=== PATIENT | male | born 1930 | race Caucasian/White ===

== ENCOUNTER 2016-11-25 06:29 | Observation (INO) ==
[2016-11-25] MEDS ORDERED: 0.9 % Sodium Chloride 1,000 ML IVC ONE (06:52)
[2016-11-25 07:22] LABS: INR 1.1; Prothrombin Time 11.6 Seconds (9.4-12.1)
[2016-11-25 07:25] LABS: Activated Partial Thrombo Time 28.9 Seconds (26.0-36.0)
[2016-11-25 07:29] LABS: Basophils # 0.1 K/mcL (0.0-0.2); Basophils % 0.8 %; Eosinophils # 0.1 K/mcL (0.0-0.6); Eosinophils % 0.8 %; Hematocrit 40.6 % (37.5-50.1); Immature Granulocytes % 0.8 % (0-4); Lymphocytes # 1.3 K/mcL (0.6-4.6); Mean Corpuscular HGB Conc 34.5 g/dL (31.6-35.5); Mean Corpuscular Hemoglobin 32.6 pg (28.0-33.3); Mean Corpuscular Volume 94.4 fL (83.0-100.0); Mean Platelet Volume 9.3 fL (9.4-12.4); Monocytes # 0.6 K/mcL (0.0-1.3); Monocytes % 8.5 %; Neutrophils # 5.2 K/mcL (1.6-8.9); Platelet Count 227 K/mcL (140-400); Red Cell Distribution Width 12.4 % (11.5-14.5); Segmented Neutrophils % 71.1 %
--- NOTE | 2016-11-25 07:42 | Emergency Department Note ---
Disposition Clinical Impression: Orthostatic hypotension Disposition: Admitted As Inpatient Condition: Good Time of Disposition: 08:51 Dizziness HPI - General Chief Complaint: ED Dizziness Stated Complaint: Lightheaded, SOB Time Seen by Provider: 11/25/16 06:41 Source: patient, family, EMS Mode of arrival: EMS Limitations: no limitations Nursing Notes Reviewed: Yes Vital Signs Reviewed: Yes - History of Present Illness HPI Narrative: 86-year-old male presents to the ER with complaints of lightheadedness. Patient has had this for several months and has had frequent falls. The past week patient has had approximately 3 falls with injuries to her upper extremities. Patient denies any loss of consciousness. Patient reports he feels significantly lightheaded when he stands. Patient persists morning had an indigestion type feeling and nausea after getting up from bed. Patient denies any symptoms of indigestion or nausea at this time Pt Subjective Complaint: lightheadedness Onset (ago): month(s) Timing: constant Description: lightheadedness History of similar episodes: Yes History of trauma: No (has fallen multiple times with ecchymosis to arms) Severity: moderate Improves with: remaining still Worsens with: position (standing up) Associated symptoms: Reports: chest pain, nausea - Related Data Home Medications Medication Instructions Recorded Confirmed Aspirin [Lo-Dose Aspirin EC] 81 mg PO QDPC 10/17/15 11/25/16 Atorvastatin [Lipitor] 40 mg PO HS 10/17/15 11/25/16 Clopidogrel [Plavix] 75 mg PO DAILY 10/17/15 11/25/16 Folic Acid 1 mg PO DAILY 10/17/15 11/25/16 Metoprolol [Lopressor] 50 mg PO DAILY 10/17/15 11/25/16 Vitamin B Complex [B Complex] 1 each PO DAILY 10/17/15 11/25/16 Midodrine HCl 5 mg PO TID 11/25/16 11/25/16 Nitroglycerin [Nitrostat] 0.4 mg SL PRN PRN 11/25/16 11/25/16 Allergies Allergy/AdvReac Type Severity Reaction Status Date / Time No Known Allergies Allergy Verified 11/25/16 06:39 All systems ED: reviewed and negative except as stated. Review of Systems: As Per HPI Constitutional: Denies: fever, chills Eyes: Denies: vision change Cardiovascular: Reports: chest pain. Denies: palpitations, dyspnea on exertion Respiratory: Denies: dyspnea Gastrointestinal: Reports: nausea. Denies: abdominal pain, vomiting Neurological: Reports: other (light headed). Denies: headache, weakness, numbness, paresthesias Past Medical History - Past Medical History Attestation: Yes The following information was validated with the patient. Source: patient, nursing notes reviewed Medical history: Reports: atrial fibrillation, cancer, coronary artery disease, diabetes, hyperlipidemia, hypertension, myocardial infarction, renal disease, other Surgical history: Reports: angioplasty/stent Psychiatric history: Reports: no psych history - Social History Smoking Status: Never smoker Smokeless Tobacco Status: No Alcohol use: Reports: occasionally Drug use: Reports: none Physical Exam - General Limitations: no limitations General appearance: alert, in no apparent distress - Head Head exam: atraumatic, normocephalic - Eye Eye exam: Present: PERRL, EOMI. Absent: conjunctival injection - ENT ENT exam: mucous membranes dry - Neck Neck exam: Present: normal inspection, full ROM. Absent: lymphadenopathy, thyromegaly - Chest Chest inspection: Present: normal inspection, symmetric chest wall rise - Respiratory Respiratory exam: Present: normal lung sounds bilaterally - Cardiovascular Cardiovascular exam: Present: regular rate, irregular rhythm - Abdominal Exam Abdominal exam: Present: soft, Non-Tender, normal bowel sounds - Expanded Upper Extremity Exam Forearm/Wrist exam: Present: ecchymosis (b/l arms) - Neurological Exam Neurological exam: Present: alert, oriented X3, CN II-XII intact. Absent: motor sensory deficit - Psychiatric Psychiatric exam: Present: normal affect - Skin Skin exam: Present: warm, dry, intact, normal color Course Course Narrative: Patient has significant orthostatic hypertension. Systolic blood pressure dropped into the 70s and patient is very symptomatic when standing. Has frequent Dr. Hodges and he has agreed to admit patient for further observation and management. Patient will also be seen by Dr. Del Rio the glaze wiper. Patient and daughter they in agreement with admission. Vital Signs Temperature 97.0 F L 11/25/16 06:30 Pulse Rate 67 11/25/16 06:30 Respiratory Rate 20 11/25/16 06:30 Blood Pressure 114/91 11/25/16 06:30 O2 Sat by Pulse Oximetry 97 11/25/16 06:30 Temperature 97.0 F L 11/25/16 08:54 Pulse Rate 76 11/25/16 07:05 Respiratory Rate 16 11/25/16 08:54 Blood Pressure 133/78 11/25/16 08:54 O2 Sat by Pulse Oximetry 94 11/25/16 07:05 Oxygen Delivery Oxygen Delivery Room Air Dizziness - Differential Diagnosis Likely: orthostatic hypotension. Unlikely: vertebral basilar insufficiency, cerebellar infarct - Lab Data Lab results reviewed: Yes I reviewed the patient's lab results. Lab results narrative: Patient with mild hyperkalemia 4.7. Patient with mild renal insufficiency. Patient's BNP is elevated patient's cardiac labs are negative at this point. Results discussed with patient and daughter. Result diagrams: 11/25/16 07:07 11/25/16 07:07 Lab Results 11/25/16 11/25/16 11/25/16 Range/Units 07:07 07:07 07:07 WBC 7.3 (4.3-11.1) K/mcL RBC 4.30 (4.19-5.50) M/mcL Hgb 14.0 (12.9-16.9) g/dL Hct 40.6 (37.5-50.1) % MCV 94.4 (83.0-100.0) fL MCH 32.6 (28.0-33.3) pg MCHC 34.5 (31.6-35.5) g/dL RDW 12.4 (11.5-14.5) % Plt Count 227 (140-400) K/mcL MPV 9.3 L (9.4-12.4) fL Immature Gran % 0.8 (0-4) % Seg Neutrophils % 71.1 % Lymphocytes % 18.0 % Monocytes % 8.5 % Eosinophils % 0.8 % Basophils % 0.8 % Neutrophils # 5.2 (1.6-8.9) K/mcL Lymphocytes # 1.3 (0.6-4.6) K/mcL Monocytes # 0.6 (0.0-1.3) K/mcL Eosinophils # 0.1 (0.0-0.6) K/mcL Basophils # 0.1 (0.0-0.2) K/mcL PT 11.6 (9.4-12.1) Seconds INR 1.1 APTT 28.9 (26.0-36.0) Seconds Sodium 135 L (136-145) mEq/L Potassium 4.7 H (3.5-4.5) mEq/L Chloride 102 (98-109) mEq/L Carbon Dioxide 26 (19-29) mEq/L BUN 18 (8-26) mg/dL Creatinine 1.60 H (0.72-1.25) mg/dL Est GFR ( Amer) 50 L (> 60) Est GFR (Non-Af Amer) 41 L (> 60) BUN/Creatinine Ratio 11 (6-26) Glucose 105 H (70-99) mg/dL Calculated Osmolality 282 (280-300) Calcium 9.5 (8.6-10.8) mg/dL Total Bilirubin 1.0 (0.2-1.2) mg/dL AST 23 (5-34) Units/L ALT 20 (0-55) Units/L Alkaline Phosphatase 110 (38-126) Units/L Creatine Kinase 82 (30-200) Units/L Troponin I (0-0.03) ng/mL B-Natriuretic Peptide (0-100) pg/mL Serum Total Protein 5.8 L (6.0-8.3) g/dL Albumin 3.2 L (3.5-5.0) g/dL Globulin 2.6 (2.4-3.5) g/dL Albumin/Globulin Ratio 1.2 (1.1-2.2) Ethyl Alcohol < 10 (0-10) mg/dL 11/25/16 11/25/16 Range/Units 07:07 07:07 WBC (4.3-11.1) K/mcL RBC (4.19-5.50) M/mcL Hgb (12.9-16.9) g/dL Hct (37.5-50.1) % MCV (83.0-100.0) fL MCH (28.0-33.3) pg MCHC (31.6-35.5) g/dL RDW (11.5-14.5) % Plt Count (140-400) K/mcL MPV (9.4-12.4) fL Immature Gran % (0-4) % Seg Neutrophils % % Lymphocytes % % Monocytes % % Eosinophils % % Basophils % % Neutrophils # (1.6-8.9) K/mcL Lymphocytes # (0.6-4.6) K/mcL Monocytes # (0.0-1.3) K/mcL Eosinophils # (0.0-0.6) K/mcL Basophils # (0.0-0.2) K/mcL PT (9.4-12.1) Seconds INR APTT (26.0-36.0) Seconds Sodium (136-145) mEq/L Potassium (3.5-4.5) mEq/L Chloride (98-109) mEq/L Carbon Dioxide (19-29) mEq/L BUN (8-26) mg/dL Creatinine (0.72-1.25) mg/dL Est GFR ( Amer) (> 60) Est GFR (Non-Af Amer) (> 60) BUN/Creatinine Ratio (6-26) Glucose (70-99) mg/dL Calculated Osmolality (280-300) Calcium (8.6-10.8) mg/dL Total Bilirubin (0.2-1.2) mg/dL AST (5-34) Units/L ALT (0-55) Units/L Alkaline Phosphatase (38-126) Units/L Creatine Kinase (30-200) Units/L Troponin I 0.03 (0-0.03) ng/mL B-Natriuretic Peptide 747 H (0-100) pg/mL Serum Total Protein (6.0-8.3) g/dL Albumin (3.5-5.0) g/dL Globulin (2.4-3.5) g/dL Albumin/Globulin Ratio (1.1-2.2) Ethyl Alcohol (0-10) mg/dL - Radiology Data Radiology results reviewed: Yes I reviewed the patient's radiology results. Assessment CT of his head which is interpreted by the radiologist as negative for acute abnormalities. Patient does have age-related changes and old lacunar infarct. Results discussed with patient. Patient also had a portable chest x- ray which is interpreted by the radiologist as positive for emphysema changes but no acute abdomen is no evidence of CHF. - EKG Data EKG attestation: Yes I reviewed and interpreted this EKG. EKG shows normal: sinus rhythm Rhythm: NSR, PAC's [place]/QRS: normal When compared to previous EKG there are: no significant changes Interpretation: no acute changes
[2016-11-25 08:13] LABS: Alanine Aminotransferase 20 Units/L (0-55); Albumin 3.2 g/dL (3.5-5.0); Albumin/Globulin Ratio 1.2 (1.1-2.2); Alkaline Phosphatase 110 Units/L (38-126); Aspartate Amino Transferase 23 Units/L (5-34); BUN/Creatinine Ratio 11 (6-26); Blood Urea Nitrogen 18 mg/dL (8-26); Calcium 9.5 mg/dL (8.6-10.8); Carbon Dioxide 26 mEq/L (19-29); Chloride 102 mEq/L (98-109); Creatine Kinase 82 Units/L (30-200); Ethanol < 10 mg/dL (0-10); Globulin 2.6 g/dL (2.4-3.5); Glucose 105 mg/dL (70-99); Osmolality,Calculated 282 (280-300); Potassium 4.7 mEq/L (3.5-4.5); Sodium 135 mEq/L (136-145); Total Protein 5.8 g/dL (6.0-8.3); eGFR For African Americans 50 (> 60); eGFR For Non-African Americans 41 (> 60)
[2016-11-25] MEDS ORDERED: Nitroglycerin 0.4 MG TAB.SUBL SL PRN (08:32)
[2016-11-25] MEDS ORDERED: Naloxone 0.4 MG/ML INJ IVP PRN (08:36)
[2016-11-25] MEDS: Folic Acid 1 MG TABLET PO SCH (09:52)
[2016-11-25] MEDS: Aspirin Enteric Coated 81 MG Tablet PO SCH (09:52)
[2016-11-25] MEDS: Vitamin B Complex/Vit C/Vit E 1 EACH TABLET PO SCH (09:52)
[2016-11-25] MEDS: 0.9 % Sodium Chloride 1,000 ML IVC SCH ×3 (09:53→19:22)
--- NOTE | 2016-11-25 11:56 | Internal Med History&Physical ---
Date of Encounter: 11/25/16 Time of Encounter: 11:54 Assessment and Plan (1) Orthostatic hypotension Current visit: Yes Status: Acute Right now Karen workup change in the meds holding the Flomax increasing the Midrin and look into may be some Florinef. Consult with Dr. Del Rio and our try to make some effort to improve his orthostasis Internal Medicine - H&P: HPI Chief complaint: Patient was positive for orthostasis in the ER and has been falling a lot. History of present illness: Mr. Charles is a 86 year old male Currently going to be worked up to see if we can improve his orthostasis. Past Med Surg Social Fam HX - Past Medical History Medical history: atrial fibrillation, cancer, coronary artery disease, diabetes , hyperlipidemia, hypertension, myocardial infarction, renal disease Psychiatric history: no psych history - Past Surgical History Surgical History: angioplasty/stent - Social History Smoking Status: Never smoker Smokeless Tobacco Status: No Alcohol use: occasionally Drug use: none - Family History Father Hx Family Neurologic Disorders: Yes (CVA) Sister Hx Family Endocrine Disorder: Yes (DM) Hx Family Neurologic Disorders: Yes (CVA, Parkinsons) Internal Medicine - H&P: Meds Aspirin [Lo-Dose Aspirin EC] 81 mg PO QDPC 10/17/15 [History] Atorvastatin [Lipitor] 40 mg PO HS 10/17/15 [History] Clopidogrel [Plavix] 75 mg PO DAILY 10/17/15 [History] Folic Acid 1 mg PO DAILY 10/17/15 [History] Vitamin B Complex [B Complex] 1 each PO DAILY 10/17/15 [History] Cholecalciferol (Vitamin D3) [Vitamin D] 1,000 unit PO DAILY 11/25/16 [History] Metoprolol Succinate 50 mg PO DAILY 11/25/16 [History] Midodrine HCl 5 mg PO TID 11/25/16 [History] Nitroglycerin [Nitrostat] 0.4 mg SL PRN PRN 11/25/16 [History] Tamsulosin HCl [Flomax] 0.4 mg PO DAILY 11/25/16 [History] 3 Allergy/AdvReac Type Severity Reaction Status Date / Time No Known Allergies Allergy Verified 11/25/16 06:39 All Systems PM: A 10-system review of systems was performed and is negative for pertinent findings except as documented above in the HPI. - Constitutional Vitals: Temp Pulse Resp BP Pulse Ox 98.1 F 94 15 128/74 94 11/25/16 09:00 11/25/16 09:00 11/25/16 09:00 11/25/16 09:00 11/25/16 09:00 - Head Head exam: Present: normal inspection - Neck Neck exam general surgery: Present: supple, trachea midline. Absent: lymphadenopathy - Respiratory Respiratory exam: Present: CTAB. Absent: accessory muscle use, rales, rhonchi, wheezes - Cardiovascular Cardiovascular exam: Present: irregular rhythm, RRR, +S1, +S2. Absent: diastolic murmur, gallop, rubs, systolic murmur Additional comments: There is obvious ectopy at time - GI/Abdominal GI/Abdominal exam: Present: normal bowel sounds, soft, no peritoneal signs. Absent: distended, tenderness - Extremities Exam Extremities exam: Present: warm, radial pulses palpable and symmetrical. Absent : calf tenderness, cyanotic, pedal edema - Expanded Upper Extremities Exam Elbow exam: Present: abrasion Forearm wrist exam: Present: abrasion Internal Med - H&P Results - Labs CBC & Chem 7: 11/25/16 07:07 11/25/16 07:07 Labs: Little bit increase of the creatinine with BUN looks good.
[2016-11-25] MEDS: Metoprolol XL (24 HR) Succ 50 MG TAB.ER.24H PO SCH (12:44)
[2016-11-25] MEDS ORDERED: *HR* Digoxin 0.5 MG/2 ML AMPUL IVP ONE (14:22)
--- NOTE | 2016-11-25 18:12 | Electrocardiograph Report ---
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
[2016-11-25] MEDS: Acetaminophen 325 MG TABLET PO PRN (22:05)
[2016-11-26 03:14] LABS: Basophils # 0.1 K/mcL (0.0-0.2); Basophils % 0.8 %; Eosinophils # 0.1 K/mcL (0.0-0.6); Eosinophils % 1.8 %; Hematocrit 36.5 % (37.5-50.1); Hemoglobin 12.7 g/dL (12.9-16.9); Immature Granulocytes % 0.2 % (0-4); Lymphocytes # 1.7 K/mcL (0.6-4.6); Lymphocytes % 25.3 %; Mean Corpuscular HGB Conc 34.8 g/dL (31.6-35.5); Mean Corpuscular Hemoglobin 32.8 pg (28.0-33.3); Mean Corpuscular Volume 94.3 fL (83.0-100.0); Mean Platelet Volume 9.3 fL (9.4-12.4); Monocytes # 0.7 K/mcL (0.0-1.3); Monocytes % 10.1 %; Neutrophils # 4.1 K/mcL (1.6-8.9); Platelet Count 190 K/mcL (140-400); Red Blood Count 3.87 M/mcL (4.19-5.50); Red Cell Distribution Width 12.4 % (11.5-14.5); Segmented Neutrophils % 61.8 %
[2016-11-26 03:24] LABS: BUN/Creatinine Ratio 13 (6-26); Blood Urea Nitrogen 17 mg/dL (8-26); Calcium 8.7 mg/dL (8.6-10.8); Carbon Dioxide 24 mEq/L (19-29); Chloride 108 mEq/L (98-109); Glucose 92 mg/dL (70-99); Osmolality,Calculated 285 (280-300); Potassium 4.5 mEq/L (3.5-4.5); Sodium 137 mEq/L (136-145); eGFR For African Americans > 60 (> 60); eGFR For Non-African Americans 52 (> 60)
[2016-11-26] MEDS: 0.9 % Sodium Chloride 1,000 ML IVC SCH ×2 (07:51→21:39)
[2016-11-26] MEDS: Folic Acid 1 MG TABLET PO SCH (08:57)
[2016-11-26] MEDS: Metoprolol XL (24 HR) Succ 50 MG TAB.ER.24H PO SCH (08:57)
[2016-11-26] MEDS: Vitamin B Complex/Vit C/Vit E 1 EACH TABLET PO SCH (08:57)
[2016-11-26] MEDS: Aspirin Enteric Coated 81 MG Tablet PO SCH (08:57)
[2016-11-26] MEDS ORDERED: Metoprolol XL (24 HR) Succ 50 MG TAB.ER.24H PO SCH (09:00)
--- NOTE | 2016-11-26 12:48 | Electrocardiograph Report ---
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
--- NOTE | 2016-11-26 13:25 | Internal Med Progress Note ---
Date of Encounter: 11/26/16 Time of Encounter: 13:23 - Assessment and plan (1) Orthostatic hypotension Current Visit: Yes Status: Acute Assessment and plan: Right now we have controlled the orthostatic hypotension. PT is going to see him and I really want to see how he does with ambulation. - Time Spent With Patient less than 15 minutes - Subjective Interval history: Patient's much better today. Blood pressure is sustained when standing and he does not have the orthostatic fall. He is eating has no complaints and his troponin is down. - Constitutional Vitals: Temp Pulse Resp BP Pulse Ox 97.8 F 59 16 147/69 94 11/26/16 07:08 11/26/16 07:08 11/26/16 09:40 11/26/16 11:55 11/26/16 07:08 - Head Head exam: Present: atraumatic, normal inspection, normocephalic - Neck Neck exam general surgery: Present: supple, trachea midline. Absent: lymphadenopathy - Respiratory Respiratory exam: Present: CTAB. Absent: accessory muscle use, rales, rhonchi, wheezes - Cardiovascular Cardiovascular exam: Present: RRR, +S1, +S2. Absent: diastolic murmur, gallop, rubs, systolic murmur - GI/Abdominal GI/Abdominal exam: Present: normal bowel sounds, soft, no peritoneal signs. Absent: distended, tenderness Internal Medicine: Result - Labs CBC & Chem 7: 11/26/16 03:05 11/26/16 03:05 Labs: Short CBC 11/26/16 Range/Units 03:05 WBC 6.6 (4.3-11.1) K/mcL Hgb 12.7 L (12.9-16.9) g/dL Hct 36.5 L (37.5-50.1) % Plt Count 190 (140-400) K/mcL Neutrophils # 4.1 (1.6-8.9) K/mcL BMP 11/26/16 03:05 Sodium 137 Potassium 4.5 Chloride 108 Carbon Dioxide 24 BUN 17 Creatinine 1.31 H Glucose 92 Calcium 8.7 Cardiac Enzymes 11/25/16 11/25/16 11/26/16 Range/Units 12:58 19:10 03:05 Troponin I 0.03 0.04 H* 0.07 H* (0-0.03) ng/mL 11/26/16 Range/Units 11:05 Troponin I 0.05 H* (0-0.03) ng/mL Lab looks good - ABG Interpretation ABG results: PT/INR, D-dimer PT 11.6 Seconds (9.4-12.1) 11/25/16 07:07 - Impressions Impressions Echocardiogram 11/25/16 11:46 Impressions: Atrial fibrillation, HR 100-120's. LVEF 40-45%. LV systolic function appears globally reduced. Mild concentric left ventricular hypertrophy. Indeterminate diastolic function. RV size is not well visualized in the apical view. Function is normal. Mild aortic regurgitation. Mild-moderate mitral regurgitation. Mild tricuspid regurgitation. No pulmonary hypertension. Left Ventricular Wall Motion: Rest Echo Findings The apex, apical inferior, mid inferior, basal inferior, apical anterior, mid anterior, basal anterior, apical septal, mid inferior septal, basal inferior septal, apical lateral, mid anterior lateral, basal anterior lateral, mid anterior septal, mid inferior lateral, basal anterior septal and basal inferior lateral schmitt were hypokinetic. Findings: Study Quality * Technically challenging windows with suboptimal image quality. ECG Findings * Atrial fibrillation, HR 100-120's. Aorta * Normally sized aortic root. Aortic Valve * No aortic stenosis. * Mild aortic regurgitation. * Aortic valve not well visualized. Mitral Valve * Mild mitral annular calcification * No mitral stenosis. * Mild-moderate mitral regurgitation. * Mildly thickened mitral valve leaflets. Left Ventricle * Mild concentric left ventricular hypertrophy. * Indeterminate diastolic function. * LVEF 40-45%. Tricuspid Valve * Tricuspid valve not well visualized. * Mild tricuspid regurgitation. * Estimated RA pressure is 3 mmHg. * Estimated RVSP is 24 mmHg. * No pulmonary hypertension. Pulmonic Valve * Pulmonic valve is not well visualized. * No pulmonic stenosis. * No pulmonic regurgitation. Pulmonary Artery * Pulmonary artery not well visualized. Left Atrium * Normal left atrial size. Right Atrium * Normal right atrial size. Right Ventricle * RV size is not well visualized in the apical view. Function is normal. Pericardium * There is no pericardial effusion present. IVC * Normal IVC dimensions and inspiratory collapse. - VTE Documentation of Mechanical Device: Graduated compression elastic hosiery Consult Discharge Plan - Plan Referrals: Jatin Schultz, TRIMMER HAND [Primary Care Provider] -
--- NOTE | 2016-11-26 14:31 | Electrocardiograph Report ---
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
[2016-11-27] MEDS: Acetaminophen 325 MG TABLET PO PRN (01:45)
[2016-11-27] MEDS: Folic Acid 1 MG TABLET PO SCH (09:45)
[2016-11-27] MEDS: Aspirin Enteric Coated 81 MG Tablet PO SCH (09:45)
[2016-11-27] MEDS: Vitamin B Complex/Vit C/Vit E 1 EACH TABLET PO SCH (09:46)
[2016-11-27] MEDS: Metoprolol XL (24 HR) Succ 50 MG TAB.ER.24H PO SCH (09:46)
--- NOTE | 2016-11-27 15:24 | Internal Med Progress Note ---
Date of Encounter: 11/27/16 Time of Encounter: 15:21 - Assessment and plan (1) Orthostatic hypotension Current Visit: Yes Status: Acute Assessment and plan: Patient's blood pressures better. And I see previous notes. We discussed increasing the metoprolol to try to prevent the supraventricular and even ventricular dysrhythmias - Time Spent With Patient less than 15 minutes - Subjective Interval history: Patient's much better today. Blood pressure is sustained when standing and he does not have the orthostatic fall. He is eating has no complaints and his troponin is down. Saw Dr. Del Rio today and also consulted with Dr. Mendez. There may get appointment to see Dr. Mendez to consider just consider a pacemaker. Rate is in the 60s with an occasional increase in his rate and irregularity. He is not near syncopal upon standing he is not nears orthostatic however he is still shaky and his gait the staff is concerned as little unstable. No result yet on the cortisol test Holter is on the patient is some removed prior to discharge. - Constitutional Vitals: Temp Pulse Resp BP Pulse Ox 97.5 F L 73 20 150/85 94 11/27/16 05:00 11/27/16 13:00 11/27/16 13:00 11/27/16 13:00 11/27/16 13:00 - Head Head exam: Present: atraumatic, normocephalic - Neck Neck exam general surgery: Present: supple, trachea midline. Absent: lymphadenopathy - Respiratory Respiratory exam: Present: CTAB. Absent: accessory muscle use, rales, rhonchi, wheezes - Cardiovascular Cardiovascular exam: Present: RRR, +S1, +S2. Absent: diastolic murmur, gallop, rubs, systolic murmur Internal Medicine: Result - Labs CBC & Chem 7: 11/26/16 03:05 11/26/16 03:05 Labs: BUN is improvement creatinine is improved some - ABG Interpretation ABG results: PT/INR, D-dimer PT 11.6 Seconds (9.4-12.1) 11/25/16 07:07 - VTE Documentation of Mechanical Device: Graduated compression elastic hosiery Consult Discharge Plan - Plan Referrals: Jatin Schultz, DIRECTOR REGULATORY AGENCY [Primary Care Provider] -
[2016-11-27] MEDS: 0.9 % Sodium Chloride 1,000 ML IVC SCH (15:31)
[2016-11-27 17:28] VITALS: BP 145/80
== END 2016-11-27 16:44 | disposition other institution (70) ==
LOC: EMEROOGRE 06:29 → INPGRE 06:29
PROVIDERS: ADMIT Internal Medicine; ATTEND Internal Medicine

== ENCOUNTER 2016-11-27 16:57 | Inpatient (IN) ==
[2016-11-27] MEDS ORDERED: Acetaminophen 325 MG TABLET PO PRN (18:15)
[2016-11-27] MEDS ORDERED: Naloxone 0.4 MG/ML INJ IVP PRN (18:20)
[2016-11-27] MEDS ORDERED: Nitroglycerin 0.4 MG TAB.SUBL SL PRN (18:21)
[2016-11-27] MEDS: Acetaminophen 325 MG TABLET PO PRN (20:56)
[2016-11-28] MEDS: Aspirin Enteric Coated 81 MG Tablet PO SCH (08:19)
[2016-11-28] MEDS: Vitamin B Complex/Vit C/Vit E 1 EACH TABLET PO SCH (08:19)
[2016-11-28] MEDS: Folic Acid 1 MG TABLET PO SCH (08:19)
--- NOTE | 2016-11-28 14:12 | Internal Med Progress Note ---
Date of Encounter: 11/28/16 Time of Encounter: 14:10 - Assessment and plan (1) Orthostatic hypotension Current Visit: No Status: Acute Assessment and plan: Patient does have a regular rhythm and when he was admitted he had severe orthostatic symptoms. Fainting and near syncope when standing. This has been corrected. Pressures are stable no near syncope. - Time Spent With Patient less than 15 minutes - Subjective Interval history: Mihaela Clauser showing improvement using Will Walker with staff still feels his ambulation is standby minimal. - Constitutional Vitals: Temp Pulse Resp BP Pulse Ox 97.7 F 75 16 133/69 96 11/28/16 07:30 11/28/16 07:30 11/28/16 07:30 11/28/16 07:30 11/28/16 07:30 - Head Head exam: Present: atraumatic, normal inspection, normocephalic - Neck Neck exam general surgery: Present: supple, trachea midline. Absent: lymphadenopathy - Respiratory Respiratory exam: Present: CTAB. Absent: accessory muscle use, rales, rhonchi, wheezes - Cardiovascular Cardiovascular exam: Present: irregular rhythm, RRR, +S1, +S2. Absent: diastolic murmur, gallop, rubs, systolic murmur Internal Medicine: Result - Labs Labs: Lab looks good - VTE Documentation of Mechanical Device: Graduated compression elastic hosiery Consult Discharge Plan - Plan Referrals: Jatin Schultz, APPAREL MANUFACTURE INSTRUCTOR [Primary Care Provider] -
[2016-11-28] MEDS: Acetaminophen 325 MG TABLET PO PRN (20:33)
[2016-11-29] MEDS: Acetaminophen 325 MG TABLET PO PRN (06:53)
[2016-11-29] MEDS: Folic Acid 1 MG TABLET PO SCH (08:20)
[2016-11-29] MEDS: Vitamin B Complex/Vit C/Vit E 1 EACH TABLET PO SCH (08:20)
[2016-11-29] MEDS: Aspirin Enteric Coated 81 MG Tablet PO SCH (08:20)
--- NOTE | 2016-11-29 13:04 | Internal Med Progress Note ---
Date of Encounter: 11/29/16 Time of Encounter: 13:02 - Assessment and plan (1) Orthostatic hypotension Current Visit: Yes Status: Acute Assessment and plan: Patient's ambulating better but still's a bit wobbly with a wheeled walker - Time Spent With Patient less than 15 minutes - Subjective Interval history: Breast Clauser has no complaints at this time. Is moving slightly with his ambulation. Heart rate is controlled but still irregularly irregular. - Constitutional Vitals: Temp Pulse Resp BP Pulse Ox 97.4 F L 66 16 142/58 94 11/29/16 07:00 11/29/16 03:30 11/29/16 07:00 11/29/16 12:25 11/29/16 07:00 - Head Head exam: Present: atraumatic, normal inspection, normocephalic - Neck Neck exam general surgery: Present: supple, trachea midline. Absent: lymphadenopathy - Respiratory Respiratory exam: Present: CTAB. Absent: accessory muscle use, rales, rhonchi, wheezes - Cardiovascular Cardiovascular exam: Present: RRR, +S1, +S2. Absent: diastolic murmur, gallop, rubs, systolic murmur Internal Medicine: Result - Labs Labs: Will repeat labs in the a.m. - VTE Documentation of Mechanical Device: Graduated compression elastic hosiery Consult Discharge Plan - Plan Referrals: Jatin Schultz, [employer]INIAN [employer]K [employer] INSTRUCTOR [Primary Care Provider] -
[2016-11-29] MEDS: Mag Hydrox/Al Hydrox/Simeth 30 ML UDC PO PRN (20:01)
[2016-11-30] MEDS: Mag Hydrox/Al Hydrox/Simeth 30 ML UDC PO PRN (05:46)
[2016-11-30 06:15] LABS: BUN/Creatinine Ratio 13 (6-26); Blood Urea Nitrogen 15 mg/dL (8-26); Calcium 8.9 mg/dL (8.6-10.8); Carbon Dioxide 27 mEq/L (19-29); Chloride 104 mEq/L (98-109); Glucose 99 mg/dL (70-99); Osmolality,Calculated 283 (280-300); Potassium 3.9 mEq/L (3.5-4.5); Sodium 136 mEq/L (136-145); eGFR For African Americans > 60 (> 60); eGFR For Non-African Americans > 60 (> 60)
[2016-11-30] MEDS: Folic Acid 1 MG TABLET PO SCH (08:14)
[2016-11-30] MEDS: Aspirin Enteric Coated 81 MG Tablet PO SCH (08:14)
[2016-11-30] MEDS: Vitamin B Complex/Vit C/Vit E 1 EACH TABLET PO SCH (08:14)
[2016-11-30] MEDS ORDERED: Simethicone 80 MG TAB.CHEW PO PRN (09:06)
--- NOTE | 2016-11-30 09:13 | Internal Med Progress Note ---
Date of Encounter: 11/30/16 Time of Encounter: 09:10 - Assessment and plan (1) Orthostatic hypotension Current Visit: Yes Status: Acute Assessment and plan: Will continue to support. Patient improving but still not sable. (2) PSVT (paroxysmal supraventricular tachycardia) Current Visit: Yes Status: Acute (3) Paroxysmal supraventricular tachycardia seen on mft Current Visit: Yes Status: Acute Assessment and plan: Etiology is unknow. Evaluation in progress per cardiology and awaiting guidance. Apparently, he had been on amiodarone but this led to CHF so it was discontinued. Episodes are self limited and resolve spontaneously. Will follow clinically. - Subjective Interval history: Doing better ye feeling dizzy at times. He knows that his heart rate increased significantly this morning but he didn't feel it. While his dizziness has improved, he wishes he were better still. He denies chest pain or pressure, dyspnea, sweats, nausea, etc. He is urinating very frequently and has no dsuria or change in urinary appeaarance. He is aware that he should only ambulate with assistance. Denies other complaints and wants to get better. - Constitutional Vitals: Temp Pulse Resp BP Pulse Ox 97.9 F 68 16 145/79 95 11/30/16 06:55 11/30/16 06:55 11/30/16 06:55 11/30/16 06:55 11/30/16 06:55 General appearance: Present: cooperative, A&O X 3, no acute distress - Head Head exam: Present: atraumatic, normocephalic - Eye Eye exam: Present: PERRL, conjuntiva pink, sclera anicteric Pupils: Present: PERRL - ENT ENT exam: Present: mucous membranes moist Additional comments: Edentulous. - Neck Neck exam general surgery: Present: supple, trachea midline - Respiratory Respiratory exam: Present: CTAB. Absent: accessory muscle use, rales, rhonchi, wheezes - Cardiovascular Cardiovascular exam: Absent: diastolic murmur, rubs, systolic murmur Additional comments: Irregular with frequent extrasystoles. - GI/Abdominal GI/Abdominal exam: Present: normal bowel sounds, soft, no peritoneal signs. Absent: distended, tenderness Additional comments: Obese and therefore difficult to palpate deeply. - Extremities Exam Extremities exam: Present: warm. Absent: calf tenderness, cyanotic, pedal edema - Back Exam Back exam: Absent: CVA tenderness (L), CVA tenderness (R) Additional comments: No sacral edema. - Skin Skin exam: Absent: abrasion, diaphoretic, petechiae, urticaria Internal Medicine: Result - Labs CBC & Chem 7: 11/30/16 05:30 Labs: BMP 11/30/16 05:30 Sodium 136 Potassium 3.9 Chloride 104 Carbon Dioxide 27 BUN 15 Creatinine 1.14 Glucose 99 Calcium 8.9 - VTE Documentation of Mechanical Device: Graduated compression elastic hosiery Consult Discharge Plan - Plan Referrals: Jatin Schultz, WATER PUMPING STATION ENGINEER [Primary Care Provider] -
[2016-12-01] MEDS: Mag Hydrox/Al Hydrox/Simeth 30 ML UDC PO PRN ×2 (05:25→21:40)
[2016-12-01] MEDS: Aspirin Enteric Coated 81 MG Tablet PO SCH (08:10)
[2016-12-01] MEDS: Vitamin B Complex/Vit C/Vit E 1 EACH TABLET PO SCH (08:10)
[2016-12-01] MEDS: Folic Acid 1 MG TABLET PO SCH (08:10)
--- NOTE | 2016-12-01 14:59 | Internal Med Progress Note ---
Date of Encounter: 12/01/16 Time of Encounter: 14:00 - Assessment and plan (1) Orthostatic hypotension Current Visit: Yes Status: Acute Assessment and plan: Will continue as planned Patient improving but still not stable with transfers, etc. (2) PSVT (paroxysmal supraventricular tachycardia) Current Visit: Yes Status: Acute (3) Paroxysmal supraventricular tachycardia seen on monitor technician Current Visit: Yes Status: Acute Assessment and plan: As before, etiology is unknow. Evaluation in progress per cardiology and awaiting guidance. Apparently, he had been on amiodarone but this led to CHF so it was discontinued. Episodes are self limited and resolve spontaneously. Will follow clinically. - Subjective Interval history: Had significant nausea and dyspepsia over night and for most of the morning. Was relatively severe and he wanted something done about it. However, upon his eating lunch and going outside, his abdominal problems subsided and he feels fine, now. He has no other complaints and admits he's not as tired as yesterday. He denies chills, sweats, abdominal pain, diarrhea, etc. Breathing is fine and there are no comoplaints of palpitation or chest pressure or pain.. - Constitutional Vitals: Temp Pulse Resp BP Pulse Ox 98.1 F 57 16 178/64 95 12/01/16 11:37 12/01/16 11:37 12/01/16 11:37 12/01/16 11:37 12/01/16 11:37 General appearance: Present: cooperative, A&O X 3, no acute distress - Head Head exam: Present: atraumatic, normocephalic - Eye Eye exam: Present: PERRL, conjuntiva pink, sclera anicteric. Absent: conjunctival injection Pupils: Present: PERRL - Neck Neck exam general surgery: Present: supple, trachea midline - Respiratory Respiratory exam: Present: CTAB. Absent: accessory muscle use, rales, rhonchi, wheezes - Cardiovascular Cardiovascular exam: Present: RRR. Absent: diastolic murmur, gallop, rubs, systolic murmur - GI/Abdominal GI/Abdominal exam: Present: hypoactive bowel sounds, soft, no peritoneal signs. Absent: distended, tenderness - Extremities Exam Extremities exam: Present: calf tenderness, cyanotic, warm, radial pulses palpable and symmetrical. Absent: pedal edema Internal Medicine: Result - Labs CBC & Chem 7: 11/30/16 05:30 - VTE Documentation of Mechanical Device: Graduated compression elastic hosiery Consult Discharge Plan - Plan Referrals: Jatin Schultz, ANIMAL HUSBANDRY TECHNICIAN [Primary Care Provider] -
[2016-12-01] MEDS: Acetaminophen 325 MG TABLET PO PRN (21:40)
[2016-12-02 05:42] LABS: Basophils % 0.6 %; Eosinophils # 0.1 K/mcL (0.0-0.6); Eosinophils % 0.8 %; Hemoglobin 13.7 g/dL (12.9-16.9); Immature Granulocytes % 0.6 % (0-4); Lymphocytes # 1.3 K/mcL (0.6-4.6); Lymphocytes % 18.6 %; Mean Corpuscular HGB Conc 34.3 g/dL (31.6-35.5); Mean Corpuscular Hemoglobin 31.9 pg (28.0-33.3); Mean Corpuscular Volume 93.2 fL (83.0-100.0); Mean Platelet Volume 9.5 fL (9.4-12.4); Monocytes # 0.6 K/mcL (0.0-1.3); Monocytes % 8.3 %; Platelet Count 215 K/mcL (140-400); Red Blood Count 4.29 M/mcL (4.19-5.50); Red Cell Distribution Width 12.6 % (11.5-14.5); Segmented Neutrophils % 71.1 %
[2016-12-02 05:56] LABS: BUN/Creatinine Ratio 15 (6-26); Blood Urea Nitrogen 20 mg/dL (8-26); Calcium 9.2 mg/dL (8.6-10.8); Carbon Dioxide 25 mEq/L (19-29); Chloride 101 mEq/L (98-109); Glucose 151 mg/dL (70-99); Osmolality,Calculated 284 (280-300); Potassium 4.5 mEq/L (3.5-4.5); Sodium 134 mEq/L (136-145); eGFR For African Americans > 60 (> 60); eGFR For Non-African Americans 50 (> 60)
[2016-12-02] MEDS: Aspirin Enteric Coated 81 MG Tablet PO SCH (08:59)
[2016-12-02] MEDS: Vitamin B Complex/Vit C/Vit E 1 EACH TABLET PO SCH (08:59)
[2016-12-02] MEDS: Folic Acid 1 MG TABLET PO SCH (09:00)
--- NOTE | 2016-12-02 14:27 | Internal Med Progress Note ---
Date of Encounter: 12/02/16 Time of Encounter: 14:25 - Assessment and plan (1) Orthostatic hypotension Current Visit: Yes Status: Acute Assessment and plan: This is pretty much resolved at this point - Time Spent With Patient less than 15 minutes - Subjective Interval history: Patient is was feeling a little lightheaded with the weigher and mixer therapy but feels much better now. Really did not eat breakfast and, SLAP part of the morning. But now he feels much better he looks bright and is working with the therapist - Constitutional Vitals: Temp Pulse Resp BP Pulse Ox 97.7 F 63 16 130/81 95 12/02/16 11:02 12/02/16 11:02 12/02/16 11:02 12/02/16 11:02 12/02/16 11:02 General appearance: Present: cooperative, A&O X 3, no acute distress - Head Head exam: Present: atraumatic, normal inspection, normocephalic - Neck Neck exam general surgery: Present: supple, trachea midline. Absent: lymphadenopathy - Respiratory Respiratory exam: Present: CTAB. Absent: accessory muscle use, rales, rhonchi, wheezes - Cardiovascular Cardiovascular exam: Present: irregular rhythm, RRR, +S1, +S2. Absent: diastolic murmur, gallop, rubs, systolic murmur Internal Medicine: Result - Labs CBC & Chem 7: 12/02/16 05:20 12/02/16 05:20 Labs: Short CBC 12/02/16 Range/Units 05:20 WBC 7.1 (4.3-11.1) K/mcL Hgb 13.7 (12.9-16.9) g/dL Hct 40.0 (37.5-50.1) % Plt Count 215 (140-400) K/mcL Neutrophils # 5.0 (1.6-8.9) K/mcL BMP 12/02/16 05:20 Sodium 134 L Potassium 4.5 Chloride 101 Carbon Dioxide 25 BUN 20 Creatinine 1.37 H Glucose 151 H Calcium 9.2 Lab actually looks really good - VTE Documentation of Mechanical Device: Graduated compression elastic hosiery Consult Discharge Plan - Plan Instructions: Hypotension (DC) Referrals: Lalito Del Rio MD [Partnered Physician] - 01/08/17 9:30 am ([place] [facility] follow up appointment) Aramis Mendez MD [Partnered Physician] - 12/11/16 1:40 pm (cardiology in [facility], [address]) Manuel Montaño DO [Partnered Physician] - 01/17/17 2:30 pm ([facility] up with [facility] in [place]) Audi Douglas MD [Partnered Physician] - 03/19/17 8:15 am (follow up with urology in [place]) Jatin Schultz CNP [Primary Care Provider] - 12/12/16 1:40 pm (follow up appointment with family physician)
[2016-12-02] MEDS: Acetaminophen 325 MG TABLET PO PRN ×2 (17:22→23:44)
[2016-12-02] MEDS: Mag Hydrox/Al Hydrox/Simeth 30 ML UDC PO PRN (19:45)
[2016-12-03] MEDS: Mag Hydrox/Al Hydrox/Simeth 30 ML UDC PO PRN (09:11)
[2016-12-03] MEDS: Vitamin B Complex/Vit C/Vit E 1 EACH TABLET PO SCH (09:11)
[2016-12-03] MEDS: Acetaminophen 325 MG TABLET PO PRN (09:11)
[2016-12-03] MEDS: Folic Acid 1 MG TABLET PO SCH (09:11)
[2016-12-03] MEDS: Aspirin Enteric Coated 81 MG Tablet PO SCH (09:11)
[2016-12-03 10:48] VITALS: BP 139/67
--- NOTE | 2016-12-03 13:25 | Discharge Summary ---
Date of Encounter: 12/03/16 Time of Encounter: 13:23 - Discharge Diagnosis (1) Orthostatic hypotension Priority: Primary Status: Acute - Discharge Medications Home Medications: Aspirin [Lo-Dose Aspirin EC] 81 mg PO QDPC 10/17/15 [History] Atorvastatin [Lipitor] 40 mg PO HS 10/17/15 [History] Clopidogrel [Plavix] 75 mg PO DAILY 10/17/15 [History] Folic Acid 1 mg PO DAILY 10/17/15 [History] Vitamin B Complex [B Complex] 1 each PO DAILY 10/17/15 [History] Cholecalciferol (Vitamin D3) [Vitamin D] 1,000 unit PO DAILY 11/25/16 [History] Metoprolol Succinate 50 mg PO DAILY 11/25/16 [History] Midodrine HCl 5 mg PO TID 11/25/16 [History] Nitroglycerin [Nitrostat] 0.4 mg SL PRN PRN 11/25/16 [History] Tamsulosin HCl [Flomax] 0.4 mg PO DAILY 11/25/16 [History] Allergies/Adverse Reactions: 3 Allergy/AdvReac Type Severity Reaction Status Date / Time No Known Allergies Allergy Verified 11/25/16 06:39 Procedures/tests Complete & Pending: Procedures Performed prior 72 hours Category Date Time Status ECG 12 lead ECG [ECG] Routine Y 12/03/16 10:38 Completed Date of admission: 11/27/16 17:38 Primary care physician: Jatin Schultz CNP Consults: 11/27/16 17:53 Consult to Occupational Therapy [CONS] Routine Comment: orthostatic hypotension Reason for Consult: orthostatic hypotension Consult to Physical Therapy [CONS] Routine Comment: orthostatic hypotension Reason for Consult: orthostatic hypotension Consult to Recreational Therapy [CONS] Routine Comment: Consult to Burlapper [CONS] Routine Reason for SW Consult: orthostatic hypotension Discharging clinician: Kirk Hodges Anticipated date of discharge: 12/03/16 - Patient Status Disposition: Home Health Service Condition: Good Functional capacity at discharge: independent ambulation Overall status at discharge: patient is progressing back to baseline - Discharge Instructions Instructions: Hypotension (DC) Follow Up With: Lalito Del Rio MD [Partnered Physician] - 01/08/17 9:30 am ([place] [facility] follow up appointment) Aramis Mendez MD [Partnered Physician] - 12/11/16 1:40 pm (cardiology in [facility], [address]) Manuel Montaño DO [Partnered Physician] - 01/17/17 2:30 pm (follow up with [facility] in [place]) Audi Douglas MD [Partnered Physician] - 03/19/17 8:15 am (follow up with urology in [place]) Jatin Schultz CNP [Primary Care Provider] - 12/12/16 1:40 pm (follow up appointment with family physician) - Diet and Activity Activity: ambulate only with your walker Diet: advance to your usual diet Interval History: Patient was falling and even had near syncopal syncopal episodes. It appeared to be orthostatic hypotension. He was admitted to correct that I consulted with Dr. Del Rio in cardiology. He had started him on Midrin for his blood pressure and I increased the dose. His heart rate though was very irregular and tachycardic at times and we have corrected that. His blood pressure is a lot more stable. And we have had no syncopal episodes since his admission. He only complains right now right shoulder pain which will do an x-ray on and this appears to be secondary to warm the falls he had at home also going to continue with PT and OT at home Hospital course: Mr. Charles is a 86 year old male [place] better blood pressures better Midrin is been increased he is going to see Dr. Mendez about possibility of a pacemaker due to the fact that he had a lot of tachycardia and medication in order to correct this might also call some bradycardia. He will be evaluated. - Time Spent with Patient Total time spent providing and/or coordinating discharge services: Less than 30 minutes - Constitutional Vitals: Temp Pulse Resp BP Pulse Ox 97.6 F 57 16 139/67 96 12/03/16 06:58 12/03/16 10:47 12/03/16 06:58 12/03/16 10:47 12/03/16 10:47 General appearance: Present: cooperative, A&O X 3, no acute distress - Head Head exam: Present: atraumatic, normal inspection, normocephalic - Neck Neck exam general surgery: Present: supple, trachea midline. Absent: lymphadenopathy - Respiratory Respiratory exam: Present: CTAB. Absent: accessory muscle use, rales, rhonchi, wheezes - Cardiovascular Cardiovascular exam: Present: RRR, +S1, +S2. Absent: diastolic murmur, gallop, rubs, systolic murmur - GI/Abdominal GI/Abdominal exam: Present: normal bowel sounds, soft, no peritoneal signs. Absent: distended, tenderness - VTE Documentation of Mechanical Device: Graduated compression elastic hosiery
--- NOTE | 2016-12-03 13:29 | Physician Discharge Referral ---
Home Health/Hosp Referral Info Transfer to: Home Health Provider in Charge Post Discharge: PCP - Diagnosis (1) Orthostatic hypotension Priority: Primary Status: Acute - Respiratory Orders Smoking Cessation: Smoking cessation has been advised. For more information, call the [place] Tobacco Quit Line at 2-411-ULWW-NOW. - Diet/Nutrition Diet/Nutrition Orders: Regular - Activity Activity Orders: Walker - Services Needed Following services are medically necessary services: Nursing, Physical Therapy, Occupational Therapy - Transfer Medications Home Medications: Aspirin [Lo-Dose Aspirin EC] 81 mg PO QDPC 10/17/15 [History] Atorvastatin [Lipitor] 40 mg PO HS 10/17/15 [History] Clopidogrel [Plavix] 75 mg PO DAILY 10/17/15 [History] Folic Acid 1 mg PO DAILY 10/17/15 [History] Vitamin B Complex [B Complex] 1 each PO DAILY 10/17/15 [History] Cholecalciferol (Vitamin D3) [Vitamin D] 1,000 unit PO DAILY 11/25/16 [History] Metoprolol Succinate 50 mg PO DAILY 11/25/16 [History] Midodrine HCl 5 mg PO TID 11/25/16 [History] Nitroglycerin [Nitrostat] 0.4 mg SL PRN PRN 11/25/16 [History] Tamsulosin HCl [Flomax] 0.4 mg PO DAILY 11/25/16 [History] Allergies/Adverse Reactions: 3 Allergy/AdvReac Type Severity Reaction Status Date / Time No Known Allergies Allergy Verified 11/25/16 06:39 Certification: Further, I certify that my clinical findings support that this patient is homebound (i.e. absences from home require considerable and taxing effort and are for medical reasons or yazdanism services or infrequently or short duration when for other reasons) because: Homebound Reason: Patient requires assistance of a person or device to safely leave home Attestation: My signature below is to certify that this patient is under my care and that I, or nurse practitioner, or a physician's assistant prosecuting attorney working with me, has a face-to -face encounter with this patient.
--- NOTE | 2016-12-03 16:23 | Electrocardiograph Report ---
[address] [address] Test Date: 2016-12-03 Pat Name: Elan Charles Department: 2001 Room: 112 Gender: M Platform Loader: Tb : 1930 Requested By: Kirk Hodges Order Number: [id number] Reading MD: Aramis Mendez Measurements Intervals [place] Rate: 53 P: 243 VT: 176 QRS: -1 QRSD: 93 T: -12 QT: 439 QTc: 422 Interpretive Statements SINUS BRADYCARDIA WITH OCCASIONAL SUPRAVENTRICULAR PREMATURE COMPLEXES MODERATE ST DEPRESSION Electronically Signed On 12-03-2016 16:21:46 EDT by Aramis Mendez
== END 2016-12-03 15:15 | disposition home health service (06) | DRG 312 ==
LOC: INPGRE 17:38
PROVIDERS: ADMIT Internal Medicine; ATTEND Internal Medicine

== ENCOUNTER 2018-09-15 10:37 | Observation (INO) ==
[2018-09-15] MEDS ORDERED: Ondansetron 4 MG/2 ML VIAL IVP ONE (10:52)
[2018-09-15] MEDS ORDERED: Isovue-370 500 ML BOTTLE IVP ONE (10:53)
[2018-09-15] MEDS ORDERED: 0.9 % Sodium Chloride 250 ML IVC ONE (10:53)
--- NOTE | 2018-09-15 11:01 | Emergency Department Note ---
Disposition Clinical Impression: Syncope Qualifiers: Syncope type: unspecified Qualified Code(s): R55 - Syncope and collapse Disposition: Admitted As Inpatient Time of Disposition: 12:55 Syncope HPI - General Chief Complaint: ED Dizziness Stated Complaint: weakness, dizziness Time Seen by Provider: 09/15/18 10:39 Source: patient, family, EMS Mode of arrival: EMS Limitations: no limitations Nursing Notes Reviewed: Yes Vital Signs Reviewed: Yes - History of Present Illness HPI Narrative: Patient presents to the emergency department with the daughter providing much of the history. She states that he woke this morning with symptoms of lightheadedness, dizziness, weakness. The symptoms yesterday. Did not felt well for the last 24 hours. Patient reports he felt nauseated but did not vomit. Was belching. Called his daughter indicating that he was ill and she found him shaky, he felt hot, he was asking for the fan blanket at the same time, he seemed confused. He told her that he had had difficulty getting to the door to open it for her. He usually uses a walker but felt too weak to walk to the door. He crawled to the couch and thinks that he fainted briefly. He was incontinent of urine and did not know that he was incontinent of urine. He felt lightheaded. Daughter states that she tried to get him to, 8 AM but he refused. He began to feel worse and then finally agreed to transport. Patient reports right lower quadrant pain which radiated to his right upper abdomen. He has had constipation for 6 days and finally had a bowel movement yesterday which was dark but the color is always dark according to the daughter. He reports the right lower quadrant pain now to be more moderate in intensity, worse if he moves or changes position, dull in character, unusual for him different than any symptoms he has had in the past. Patient denies any shortness of breath or chest pain. But the daughter states that previous episode similar to this have been related to heart. He has a past medical history of atrial fibrillation, also other irregular beats for which she had a loop recorder implanted by Dr. Mendez. He has had 2 cardiac stents one of which done 2 years ago after symptoms similar to today's - Related Data Home Medications Medication Instructions Recorded Confirmed Atorvastatin [Lipitor] 40 mg PO HS 10/17/15 09/15/18 Clopidogrel [Plavix] 75 mg PO DAILY 10/17/15 09/15/18 Nitroglycerin [Nitrostat] 0.4 mg SL PRN PRN 11/25/16 09/15/18 Cholecalciferol (D-3) [Vitamin D] 5,000 unit PO DAILY 09/13/17 09/15/18 Aspirin [Lo-Dose Aspirin EC] 81 mg PO DAILY 10/29/17 09/15/18 Mirtazapine [Remeron] 15 mg PO HS 10/29/17 09/15/18 LORazepam [Ativan] 0.5 mg PO BID 09/15/18 09/15/18 Levothyroxine [Synthroid] 25 mcg PO 0609/15/18 09/15/18 Tolterodine Tartrate [Tolterodine 2 mg PO DAILY 09/15/18 09/15/18 Tartrate ER] Previous Rx's Medication Instructions Recorded Diltiazem CD (24hr) [Cardizem CD] 120 mg PO DAILY 30 Days #30 09/16/17 cap.er.24h Midodrine [ProAmatine] 7.5 mg PO 0800,1200,1700 30 Days 09/16/17 #90 tablet Allergies Allergy/AdvReac Type Severity Reaction Status Date / Time No Known Allergies Allergy Verified 09/15/18 11:05 All systems ED: reviewed and negative except as stated. Review of Systems: As Per HPI Past Medical History - Past Medical History Medical history: Reports: atrial fibrillation, coronary artery disease, diabetes, hyperlipidemia, hypertension, myocardial infarction, renal disease, SVT, other Surgical history: Reports: angioplasty/stent Psychiatric history: Reports: no psych history - Social History Smoking Status: Former smoker Smokeless Tobacco Status: No Alcohol use: Reports: occasionally Drug use: Reports: none Physical Exam Constitutional: Patient is oriented to person, place, and time. Skin color is pink. Appears well hydrated, body habitus elderly and frail.. Non toxic appearing but is slow to respond sometimes and seems to be searching for words. Slightly confused.. Head: Normocephalic and atraumatic. External ear exam normal Nose: Nose normal. Mouth/Throat: Uvula is midline, oropharynx is clear and moist and mucous membranes are normal. Eyes: Conjunctivae nl, extraocular motions and lids are normal. Pupils are equal, round, and reactive to light. Neck: Normal range of motion and phonation normal. Neck supple. Cardiovascular: Normal rate, irregular rhythm, normal heart sounds. No heart murmur Pulmonary/Chest: No Respiratory distress. Respiratory Effort normal and breath sounds clear. Abdominal: Soft. Normal appearance and bowel sounds are normal. Right lower quadrant tenderness, no masses right lower quadrant guarding, no rebound Genitals: Patient has involuted penis and no evidence of swelling of testicles or penis without lesions or erythema. No discoloration of the scrotum. Musculoskeletal: Good distal pulses. Soft compartments. Brisk cap refill. Extremities: Normal range of motion.Intact peripheral pulses. 1+ Edema. Extremity skin color nl, no calf tenderness or palpable cords. Neurological: GCS 15. Patient is alert and oriented without evidence of obvio us motor deficits but he does seem to be slightly confused. He is able to follow commands. He has no facial droop or focal neuro deficits visible. Speech is somewhat delayed sometimes he will think of the word but he is not frankly aphasic Skin: Skin is warm, dry and intact. color is normal, cap refill is quick Psychiatric: Patient has normal mood and flat affect. Patient speech is normal. Behavior and thought content normal - General Limitations: no limitations General appearance: alert, in no apparent distress Course - Reevaluation(s) Reevaluation #1: Patient reevaluated. No new complaints. No bowel movement yet and plan for cath for urine specimen. pt had syncope w/ urinary incontinence and abd pain, confusion. he will require hospital admission for eval, but this will need to wait until after CT results avail. sts requires nothing for his abd pain aat present. Time: 11:35 Reevaluation #2: I discussed the case with Dr. Alex converter skimmer for hospitalist. She understands that the CT of the abdomen is pending and if indeed the patient has a surgical emergency he will not be able to be admitted here however I do feel as though he requires hospitalization as he had a syncopal episode and will need to be fully evaluated for that including serial troponins. Care was turned over to Dr. Archer at change of shift Time: 12:20 Reevaluation #3: CT scan showed no acute process up at page out for Dr. Alex at 1328 2 advised that the patient could be admitted here to our facility for further management and treatment she continues rest comfortably he is an elderly male in no distress skin is without rash or lesions he is pale but intact pupils round nares are patent Rosoff supple trachea is midline chest clear to all station heart regular rate and rhythm abdomen is tender but no rebound or rigidity no pulsatile masses examination patient for range of motion mentation is intact Vital Signs Temperature 98.3 F 09/15/18 10:46 Pulse Rate 100 09/15/18 10:46 Respiratory Rate 16 09/15/18 10:46 Blood Pressure 128/86 09/15/18 10:46 O2 Sat by Pulse Oximetry 99 09/15/18 10:46 Temperature 98.3 F 09/15/18 10:46 Pulse Rate 81 09/15/18 12:18 Respiratory Rate 18 09/15/18 12:18 Blood Pressure 121/87 09/15/18 12:18 O2 Sat by Pulse Oximetry 95 09/15/18 12:18 Oxygen Delivery Oxygen Delivery Room Air Syncope - MDM Narrative Medical decision making narrative: Abdominal pain possible appendicitis - Differential Diagnosis Likely: vasovagal syncope, intracerebral hemorrhage, dehydration/metabolic disorder - Medical Records Medical records reviewed: Yes I reviewed the patient's medical records. - Lab Data Lab results reviewed: Yes I reviewed the patient's lab results. Result diagrams: 09/15/18 11:05 09/15/18 11:05 Lab Results 09/15/18 09/15/18 09/15/18 Range/Units 11:05 11:05 11:05 WBC 11.2 H (4.3-11.1) K/mcL RBC 4.66 (4.19-5.50) M/mcL Hgb 14.8 (12.9-16.9) g/dL Hct 44.3 (37.5-50.1) % MCV 95.1 (83.0-100.0) fL MCH 31.8 (28.0-33.3) pg MCHC 33.4 (31.6-35.5) g/dL RDW 13.3 (11.5-14.5) % Plt Count 260 (140-400) K/mcL MPV 9.2 L (9.4-12.4) fL Immature Gran % 0.5 (0-4) % Seg Neutrophils % 81.0 % Lymphocytes % 9.4 % Monocytes % 7.7 % Eosinophils % 0.7 % Basophils % 0.7 % Neutrophils # 9.1 H (1.6-8.9) K/mcL Lymphocytes # 1.1 (0.6-4.6) K/mcL Monocytes # 0.9 (0.0-1.3) K/mcL Eosinophils # 0.1 (0.0-0.6) K/mcL Basophils # 0.1 (0.0-0.2) K/mcL PT 12.4 H (9.4-12.1) Seconds INR 1.1 VBG pH (7.32-7.42) pH Units VBG pCO2 (41-51) mmHg VBG pO2 (25-50) mmHg VBG HCO3 Sodium 138 (136-145) mEq/L Potassium 4.6 (3.5-5.1) mEq/L Chloride 104 (98-107) mEq/L Carbon Dioxide 24 (23-29) mEq/L BUN 20 (8-23) mg/dL Creatinine 2.14 H (0.70-1.30) mg/dL Est GFR ( Amer) 36 L (> 60) Est GFR (Non-Af Amer) 30 L (> 60) BUN/Creatinine Ratio 9 (6-26) Glucose 122 H (70-105) mg/dL Calculated Osmolality 290 (280-300) Lactic Acid (0.5-2.2) mmol/L Calcium 9.1 (8.6-10.3) mg/dL Magnesium 2.1 (1.6-2.6) mg/dL Total Bilirubin 1.2 H (0.3-1.0) mg/dL AST 21 (13-39) Units/L ALT 18 (7-52) Units/L Alkaline Phosphatase 93 (34-104) Units/L Troponin I 0.03 (< 0.04) ng/mL Serum Total Protein 6.1 L (6.4-8.9) g/dL Albumin 3.7 (3.5-5.7) g/dL Globulin 2.4 (2.4-3.5) g/dL Albumin/Globulin Ratio 1.5 (1.1-2.2) TSH 3.782 (0.340-5.600) mcIU/mL Urine Color (Yellow) Urine Clarity (Clear) Urine pH (5.0-8.0) pH Units Ur Specific [place] (1.010-1.025) Urine Protein (Neg-Trace) mg/dL Urine Glucose (UA) (Normal) mg/dL Urine Ketones (Negative) mg/dL Urine Blood (Negative) Urine Nitrite (Negative) Urine Bilirubin (Negative) Urine Urobilinogen (Normal) mg/dL Ur Leukocyte Esterase (Negative) Urine Microscopic WBC (0-3) per hpf Urine Mucus (Few) Ur Culture Indicated? (NO) 09/15/18 09/15/18 09/15/18 Range/Units 11:05 11:24 11:55 WBC (4.3-11.1) K/mcL RBC (4.19-5.50) M/mcL Hgb (12.9-16.9) g/dL Hct (37.5-50.1) % MCV (83.0-100.0) fL MCH (28.0-33.3) pg MCHC (31.6-35.5) g/dL RDW (11.5-14.5) % Plt Count (140-400) K/mcL MPV (9.4-12.4) fL Immature Gran % (0-4) % Seg Neutrophils % % Lymphocytes % % Monocytes % % Eosinophils % % Basophils % % Neutrophils # (1.6-8.9) K/mcL Lymphocytes # (0.6-4.6) K/mcL Monocytes # (0.0-1.3) K/mcL Eosinophils # (0.0-0.6) K/mcL Basophils # (0.0-0.2) K/mcL PT (9.4-12.1) Seconds INR VBG pH 7.59 H (7.32-7.42) pH Units VBG pCO2 < 13 L (41-51) mmHg VBG pO2 186 H (25-50) mmHg VBG HCO3 TNP Sodium (136-145) mEq/L Potassium (3.5-5.1) mEq/L Chloride (98-107) mEq/L Carbon Dioxide (23-29) mEq/L BUN (8-23) mg/dL Creatinine (0.70-1.30) mg/dL Est GFR ( Amer) (> 60) Est GFR (Non-Af Amer) (> 60) BUN/Creatinine Ratio (6-26) Glucose (70-105) mg/dL Calculated Osmolality (280-300) Lactic Acid 1.6 (0.5-2.2) mmol/L Calcium (8.6-10.3) mg/dL Magnesium (1.6-2.6) mg/dL Total Bilirubin (0.3-1.0) mg/dL AST (13-39) Units/L ALT (7-52) Units/L Alkaline Phosphatase (34-104) Units/L Troponin I (< 0.04) ng/mL Serum Total Protein (6.4-8.9) g/dL Albumin (3.5-5.7) g/dL Globulin (2.4-3.5) g/dL Albumin/Globulin Ratio (1.1-2.2) TSH (0.340-5.600) mcIU/mL Urine Color Yellow (Yellow) Urine Clarity Clear (Clear) Urine pH 6.0 (5.0-8.0) pH Units Ur Specific [place] 1.020 (1.010-1.025) Urine Protein 30 H (Neg-Trace) mg/dL Urine Glucose (UA) Normal (Normal) mg/dL Urine Ketones Negative (Negative) mg/dL Urine Blood Negative (Negative) Urine Nitrite Negative (Negative) Urine Bilirubin Negative (Negative) Urine Urobilinogen Normal (Normal) mg/dL Ur Leukocyte Esterase Negative (Negative) Urine Microscopic WBC 0-3 (0-3) per hpf Urine Mucus Few (Few) Ur Culture Indicated? NO (NO) - Radiology Data Radiology results reviewed: Yes I reviewed the patient's radiology results. Portable chest x-ray report from radiology "hyperinflated lungs. No acute pathology" ct brain: imp radiology: No acute intracranial abnormality. Age-related changes including chronic small vessel ischemia and cerebral atrophy." ct impr abd: from radiologist: Impression no acute abnormality of the abdomen or pelvis - EKG Data EKG attestation: Yes I reviewed and interpreted this EKG. EKG results narrative: ECG shows sinus rhythm with a rate of 96. Premature complexes. Prolonged IL. No evidence of ST elevation or depression. No signs of acute ischemia.
[2018-09-15 11:15] LABS: Basophils # 0.1 K/mcL (0.0-0.2); Basophils % 0.7 %; Eosinophils # 0.1 K/mcL (0.0-0.6); Eosinophils % 0.7 %; Hematocrit 44.3 % (37.5-50.1); Hemoglobin 14.8 g/dL (12.9-16.9); Immature Granulocytes % 0.5 % (0-4); Lymphocytes # 1.1 K/mcL (0.6-4.6); Lymphocytes % 9.4 %; Mean Corpuscular HGB Conc 33.4 g/dL (31.6-35.5); Mean Corpuscular Hemoglobin 31.8 pg (28.0-33.3); Mean Corpuscular Volume 95.1 fL (83.0-100.0); Mean Platelet Volume 9.2 fL (9.4-12.4); Monocytes # 0.9 K/mcL (0.0-1.3); Monocytes % 7.7 %; Neutrophils # 9.1 K/mcL (1.6-8.9); Platelet Count 260 K/mcL (140-400); Red Blood Count 4.66 M/mcL (4.19-5.50); Red Cell Distribution Width 13.3 % (11.5-14.5); White Blood Count 11.2 K/mcL (4.3-11.1)
[2018-09-15 11:21] LABS: INR 1.1; Prothrombin Time 12.4 Seconds (9.4-12.1)
[2018-09-15 11:26] LABS: VBG PCO2 < 13 mmHg (41-51); VBG PH 7.59 pH Units (7.32-7.42); VBG PO2 186 mmHg (25-50)
[2018-09-15 11:29] LABS: Albumin 3.7 g/dL (3.5-5.7); Albumin/Globulin Ratio 1.5 (1.1-2.2); Bilirubin,Total 1.2 mg/dL (0.3-1.0); Calcium 9.1 mg/dL (8.6-10.3); Globulin 2.4 g/dL (2.4-3.5); Magnesium 2.1 mg/dL (1.6-2.6); Potassium 4.6 mEq/L (3.5-5.1); Total Protein 6.1 g/dL (6.4-8.9)
[2018-09-15 11:32] LABS: Troponin I 0.03 ng/mL (< 0.04)
[2018-09-15 11:45] LABS: Thyroid Stimulating Hormone 3.782 mcIU/mL (0.340-5.600)
[2018-09-15 12:04] LABS: Bilirubin,Urine Negative (Negative); Blood,Urine Negative (Negative); Clarity,Urine Clear (Clear); Color,Urine Yellow (Yellow); Glucose,Urine (UA) Normal (Normal); Ketones,Urine Negative (Negative); Leukocyte Esterase,Urine Negative (Negative); Nitrite,Urine Negative (Negative); Protein,Urine 30 mg/dL (Neg-Trace); Urobilinogen,Urine Normal (Normal)
[2018-09-15 12:05] LABS: Mucus,Urine Few (Few); WBC,Urine 0-3 per hpf (0-3)
--- NOTE | 2018-09-15 12:32 | Electrocardiograph Report ---
[place] [id number] Test Date: 2018-09-15 Pat Name: Elan Charles Department: EDG3 Room: Gender: M [employer] Supervisor: : [id number] Requested By: Nya Dove Order Number: [id number] Reading MD: Mireya Mendez Measurements Intervals [place] Rate: 96 P: 13 CA: 236 QRS: 43 QRSD: 101 T: 3 QT: 372 QTc: 471 Interpretive Statements Sinus rhythm with first degree AVB Multiple premature complexes, vent & supraven Borderline low voltage, extremity leads Nonspecific ST-T wave changes Electronically Signed On 09-15-2018 12:30:38 EDT by Mireya Mendez
[2018-09-15] MEDS ORDERED: Isovue-370 500 ML BOTTLE PO ONE (12:54)
[2018-09-15] MEDS ORDERED: Naloxone 0.4 MG/ML INJ IVP PRN (15:54)
[2018-09-15] MEDS ORDERED: Nitroglycerin 0.4 MG TAB.SUBL SL PRN (16:07)
[2018-09-15] MEDS: Mirtazapine 15 MG TABLET PO SCH (20:47)
[2018-09-16 06:04] LABS: Basophils # 0.1 K/mcL (0.0-0.2); Basophils % 0.8 %; Eosinophils # 0.3 K/mcL (0.0-0.6); Eosinophils % 4.3 %; Hematocrit 40.3 % (37.5-50.1); Immature Granulocytes % 0.6 % (0-4); Lymphocytes # 1.5 K/mcL (0.6-4.6); Lymphocytes % 18.8 %; Mean Corpuscular Hemoglobin 31.4 pg (28.0-33.3); Mean Platelet Volume 9.1 fL (9.4-12.4); Monocytes # 0.8 K/mcL (0.0-1.3); Monocytes % 9.9 %; Neutrophils # 5.2 K/mcL (1.6-8.9); Platelet Count 225 K/mcL (140-400); Red Blood Count 4.24 M/mcL (4.19-5.50); Red Cell Distribution Width 13.3 % (11.5-14.5); Segmented Neutrophils % 65.6 %; White Blood Count 7.9 K/mcL (4.3-11.1)
[2018-09-16 06:11] LABS: Hemoglobin 13.3 g/dL (12.9-16.9)
[2018-09-16 06:30] LABS: Calcium 8.8 mg/dL (8.6-10.3); Magnesium 2.1 mg/dL (1.6-2.6); Potassium 4.3 mEq/L (3.5-5.1)
[2018-09-16] MEDS: Levothyroxine 25 MCG TABLET PO SCH (06:30)
[2018-09-16] MEDS: Cholecalciferol (D-3) 1,000 UNIT (25MCG) TABLET PO SCH (07:59)
[2018-09-16] MEDS: Aspirin Enteric Coated 81 MG Tablet PO SCH (07:59)
[2018-09-16] MEDS: Tolterodine LA (24 HR) 2 MG CAP.ER.24H PO SCH (07:59)
[2018-09-16] MEDS: Diltiazem CD (24hr) 120 MG CAPSULE PO SCH (08:00)
[2018-09-16] MEDS: *HR* LORazepam 0.5 MG TABLET PO PRN ×2 (11:03→22:19)
--- NOTE | 2018-09-16 15:13 | Internal Med History&Physical ---
Date of Encounter: 09/16/18 Time of Encounter: 15:07 Assessment and Plan (1) Abdominal pain Current visit: Yes Status: Acute Patient presented to emergency department with complaints of abdominal pain to his right lower quadrant. Patient had a CT scan of chest and abdomen which shows no acute issues. Patient currently states that his pain has resolved and denies any tenderness on palpation. On exam abdomen appears nonacute. Patient states that he has had a recent BM. Denies any nausea. We will continue to monitor closely. Qualifiers: Abdominal location: unspecified location Qualified Code(s): R10.9 - Unspecified abdominal pain (2) CAD (coronary artery disease) Current visit: Yes Status: Chronic No acute issues. Patient denies any chest discomforts or palpitations. We will continue patient on his current home medications and continue to monitor closely Qualifiers: Coronary Disease-Associated Artery/Lesion type: [place] artery [place] vs. transplanted heart: [place] heart Associated angina: without angina Qualified Code(s): I25.10 - Atherosclerotic heart disease of [place] coronary artery without angina pectoris (3) CKD (chronic kidney disease), stage III Current visit: Yes Status: Chronic No acute issues. Patient's last creatinine was 2.33 with a BUN of 24. We will continue to monitor patient's renal status to serial labs. (4) Atrial fibrillation Current visit: Yes Status: Chronic No acute issues. Patient's heart rate remains irregular on auscultation, but ventricular rate has been less than 100. We will continue with current home medications. Qualifiers: Atrial fibrillation type: paroxysmal Qualified Code(s): I48.0 - Paroxysmal atrial fibrillation (5) Cardiomyopathy Current visit: Yes Status: Acute No acute issues. Lungs are clear throughout with diminished basilar grimes. Vital signs stable. Patient denies any dyspnea or palpitations. We will continue with current home medications Qualifiers: Cardiomyopathy type: unspecified Qualified Code(s): I42.9 - Cardiomyopathy, unspecified (6) HTN (hypertension) Current visit: Yes Status: Chronic Vital signs are stable. We will continue with current medications. Qualifiers: Hypertension type: essential hypertension Qualified Code(s): I10 - Essential (primary) hypertension Internal Medicine - H&P: HPI Chief complaint: abdominal pain Admitted From: Emergency Dept Plans for Post Hospital Care: Home History of present illness: Mr. Charles is a 87 year old male, who presents to the emergency department with the daughter providing much of the history per medical records. Patient noted to be a poor historian, so most of his Hx is being obtained from his medical records. His daughter stated that he awakened this morning with symptoms of lightheadedness, dizziness, weakness, and has not felt well for the last 24 hours. Patient reported that he felt nauseated but did not vomit, but has been belching. He usually uses a walker, but has felt too weak to walk. Patient reported right lower quadrant pain which radiated to his right upper abdomen. He has had constipation for 6 days and finally had a bowel movement yesterday which was dark but the color is always dark according to the daughter. He reported that his right lower quadrant dull pain had been moderate in intensity, worsened if he moved or changed position. He has a past medical history of atrial fibrillation, also other irregular beats for which she had a loop recorder implanted by Dr. Mendez. He has had 2 cardiac stents one of which done 2 years ago after symptoms similar to today's Patient currently states that his abdominal pain has resolved. Patient had imaging that was obtained of chest and abdomen which showed no acute process. Abdomen appears soft and patient denies any tenderness on palpation. Patient denies any other discomforts or shortness of breath. Patient states she continues to feel a general weakness and states he is unable to ambulate at this time. Past Med Surg Social Fam HX - Past Medical History Medical history: atrial fibrillation, coronary artery disease, diabetes, hyperl ipidemia, hypertension, myocardial infarction, renal disease, SVT, other Additional medical history: SVT, MITRAL VALVE PROLAPSE, BASAL CELL CA RT EAR, PROSTATE CA, CARDIAC STENTS X 2, Psychiatric history: no psych history - Past Surgical History Surgical History: angioplasty/stent Additional surgical history: Cardiac stent- last 02/2017 - Social History Smoking Status: Former smoker Smokeless Tobacco Status: No Alcohol use: occasionally Drug use: none - Family History Father Family Member Ethnicity: Non- Living Status: Hx Family Cardiac Disorders: Yes Hx Family Respiratory Disorders: Yes (smoker) Hx Family Neurologic Disorders: Yes (CVA) Sister Living Status: Hx Family Cardiac Disorders: Yes (heart disease) Hx Family Cancer: Yes (breast) Hx Family Endocrine Disorder: Yes (DM) Hx Family Neurologic Disorders: Yes (CVA, Parkinsons) Internal Medicine - H&P: Meds Atorvastatin [Lipitor] 40 mg PO HS 10/17/15 [History] Clopidogrel [Plavix] 75 mg PO DAILY 10/17/15 [History] Nitroglycerin [Nitrostat] 0.4 mg SL PRN PRN 11/25/16 [History] Cholecalciferol (D-3) [Vitamin D] 5,000 unit PO DAILY 09/13/17 [History] Diltiazem CD (24hr) [Cardizem CD] 120 mg PO DAILY 30 Days #30 cap.er.24h 09/16/17 [Rx] Midodrine [ProAmatine] 7.5 mg PO 0800,1200,1700 30 Days #90 tablet 09/16/17 [Rx] Aspirin [Lo-Dose Aspirin EC] 81 mg PO DAILY 10/29/17 [History] Mirtazapine [Remeron] 15 mg PO HS 10/29/17 [History] LORazepam [Ativan] 0.5 mg PO BID 09/15/18 [History] Levothyroxine [Synthroid] 25 mcg PO 0630 09/15/18 [History] Tolterodine Tartrate [Tolterodine Tartrate ER] 2 mg PO DAILY 09/15/18 [History] Allergy/AdvReac Type Severity Reaction Status Date / Time No Known Allergies Allergy Verified 09/15/18 11:05 All Systems PM: A 10-system review of systems was performed and is negative for pertinent findings except as documented above in the HPI. - Constitutional Constitutional: as per HPI, no chills, no fever(s), no night sweats - EENT Eyes: as per HPI, no change in vision, no discharge, no pain, no photophobia Ears: as per HPI, no ear discharge, no ear pain, no tinnitus Nose, mouth and throat: no dysphagia, no nasal discharge, no neck pain, no sore throat - Breasts Breasts: as per HPI - Cardiovascular Cardiovascular ROS IM: as per HPI, no chest pain, no diaphoresis, no dyspnea, no lightheadedness, no palpitations, no syncope - Respiratory Respiratory: as per HPI, no cough, no dyspnea, no wheezing, no excessive phlegm production - Gastrointestinal Gastrointestinal: as per HPI, no abdominal pain, no diarrhea, no hematemesis, no hematochezia, no melena, no nausea, no vomiting - Genitourinary Genitourinary ROS male: as per HPI - Musculoskeletal Musculoskeletal ROS IM: as per HPI, no numbness, no tingling - Integumentary Integumentary IM: as per HPI, no rash, no unusual bruising - Neurological Neurological ROS: as per HPI, no confusion, no convulsions, no focal weakness, no numbness, no tingling, no tremor(s) - Psychiatric Psychiatric: as per HPI - Endocrine Endocrine IM: as per HPI - Hematologic/Lymphatic Hematologic/Lymphatic: as per HPI, no easy bruising - Constitutional Vitals: Temp Pulse Resp BP Pulse Ox 98.1 F 94 14 150/83 91 09/16/18 07:00 09/16/18 07:00 09/16/18 07:00 09/16/18 07:00 09/16/18 07:00 General appearance: Present: A&O X 3, pleasant Exam: Patient noted to have some difficulty with complex questions, becoming slightly confused. Patient also noted to be a very poor historian when recalling his medical history. - Head Head exam: Present: atraumatic, normocephalic - Eye Eye exam: Present: PERRL, conjuntiva pink, sclera anicteric Pupils: Present: PERRL - Neck Neck exam general surgery: Present: supple, trachea midline. Absent: lymphadenopathy - Respiratory Respiratory exam: Present: decreased breath sounds, CTAB. Absent: accessory muscle use, rales, rhonchi, wheezes - Cardiovascular Cardiovascular exam: Present: RRR, +S1, +S2. Absent: diastolic murmur, gallop, rubs, systolic murmur - GI/Abdominal GI/Abdominal exam: Present: normal bowel sounds, soft, no peritoneal signs. Absent: distended, tenderness - Extremities Exam Extremities exam: Present: warm, radial pulses palpable and symmetrical. Absent: calf tenderness, cyanotic, pedal edema - Neurological Exam Neurological exam: Present: CN II-XII intact, oriented X3, no focal deficits. Absent: pronater drift, facial droop, speech deficit - Skin Skin exam: Present: dry, intact Internal Med - H&P Results - Labs CBC & Chem 7: 09/16/18 05:50 09/16/18 05:50 Labs: Short CBC 09/16/18 Range/Units 05:50 WBC 7.9 (4.3-11.1) K/mcL Hgb 13.3 D (12.9-16.9) g/dL Hct 40.3 (37.5-50.1) % Plt Count 225 (140-400) K/mcL Neutrophils # 5.2 (1.6-8.9) K/mcL BMP 09/16/18 05:50 Sodium 138 Potassium 4.3 Chloride 106 Carbon Dioxide 25 BUN 24 H Creatinine 2.33 H Glucose 112 H Calcium 8.8 - ABG Interpretation ABG results: 09/15/18 11:24 VBG pH 7.59 H VBG pCO2 < 13 L VBG pO2 186 H VBG HCO3 TNP - Impressions ITS Impressions Chest X-Ray 09/15/18 10:40 IMPRESSION: No evidence of acute process. Hyperinflated lungs. D/ / Horacio Lee / Horacio Lee Interpreting Provider: Horacio Lee Abdomen/Pelvis CT 09/15/18 10:53 IMPRESSION: No acute abnormality of the abdomen or pelvis. D/ / Abner Moore MD / Abner Moore MD Interpreting Provider: Abner Moore MD Head CT 09/15/18 10:53 IMPRESSION: No acute intracranial abnormality. Age related changes including chronic small vessel ischemic disease and cerebral atrophy. D/ / 09/15/2018 12:33:11 Shannan Ventura MD / oli Interpreting Provider: Shannan Ventura MD
[2018-09-16] MEDS: Mirtazapine 15 MG TABLET PO SCH (22:19)
[2018-09-17] MEDS: Levothyroxine 25 MCG TABLET PO SCH (05:51)
[2018-09-17] MEDS: Aspirin Enteric Coated 81 MG Tablet PO SCH (08:14)
[2018-09-17] MEDS: Cholecalciferol (D-3) 1,000 UNIT (25MCG) TABLET PO SCH (08:14)
[2018-09-17] MEDS: Diltiazem CD (24hr) 120 MG CAPSULE PO SCH (08:15)
[2018-09-17] MEDS: Tolterodine LA (24 HR) 2 MG CAP.ER.24H PO SCH (08:15)
--- NOTE | 2018-09-17 12:16 | Internal Med Progress Note ---
Date of Encounter: 09/17/18 Time of Encounter: 12:14 - Assessment and plan (1) Abdominal pain Current Visit: Yes Status: Acute Assessment and plan: Patient's abdominal pain has resolved since his admission but patient has not been able to have a bowel movement. Patient currently is taking prune juice and will review patient's current laxatives. Abdomen appears nonacute on exam. We will continue to monitor closely. Qualifiers: Abdominal location: unspecified location Qualified Code(s): R10.9 - Unspecified abdominal pain (2) CAD (coronary artery disease) Current Visit: Yes Status: Chronic Assessment and plan: Patient with a long cardiac history per medical records. Patient has experienced episodes of syncope at home and states that he has had near syncope when attempting to get up out of bed to the bedside commode. Patient had a carotid Doppler that was performed several years ago and will require a repeat Doppler during this admission. He currently denies any chest discomforts or palpitations. Vital signs stable. We will obtain orthostatic vital signs. We will continue with current medications. We will have therapy evaluate patient Qualifiers: Coronary Disease-Associated Artery/Lesion type: [place] artery [place] vs. transplanted heart: kaw heart Associated angina: without angina Qualified Code(s): I25.10 - Atherosclerotic heart disease of [place] coronary artery without angina pectoris (3) CKD (chronic kidney disease), stage III Current Visit: Yes Status: Chronic Assessment and plan: No acute issues. Patient's most recent creatinine was at 2.33. We will continue to monitor patient's renal status and serial labs. (4) Atrial fibrillation Current Visit: Yes Status: Chronic Assessment and plan: No acute issues. Patient's heart rate remains irregular with controlled rate less than 100. Qualifiers: Atrial fibrillation type: paroxysmal Qualified Code(s): I48.0 - Paroxysmal atrial fibrillation (5) HTN (hypertension) Current Visit: Yes Status: Chronic Qualifiers: Hypertension type: essential hypertension Qualified Code(s): I10 - Essential (primary) hypertension - Time Spent With Patient less than 15 minutes - Subjective Interval history: Patient appears relaxed and currently denies any discomforts or shortness of breath. Patient states that his abdominal pain has resolved since his admission. Patient also states he continues not to be able to have a BM at this time. Denies any syncopal symptoms, but does state that he has had episodes of near-syncope when standing or at times during ambulation. Patient states concerns about having to ambulate to the bathroom and has been provided with a bedside commode. Was instructed to use [place] for assistance before at tempting to get out of bed due to his syncope. - Constitutional Vitals: Temp Pulse Resp BP Pulse Ox 98.0 F 82 16 144/87 95 09/17/18 12:00 09/17/18 12:00 09/17/18 12:00 09/17/18 12:00 09/17/18 12:00 General appearance: Present: A&O X 3, pleasant - Head Head exam: Present: atraumatic, normocephalic - Eye Eye exam: Present: PERRL, conjuntiva pink, sclera anicteric Pupils: Present: PERRL - Neck Neck exam general surgery: Present: supple, trachea midline. Absent: ly mphadenopathy - Respiratory Respiratory exam: Present: decreased breath sounds, CTAB. Absent: accessory muscle use, rales, rhonchi, wheezes - Cardiovascular Cardiovascular exam: Present: RRR, +S1, +S2. Absent: diastolic murmur, gallop, rubs, systolic murmur - GI/Abdominal GI/Abdominal exam: Present: normal bowel sounds, soft, no peritoneal signs. Absent: distended, tenderness - Extremities Exam Extremities exam: Present: warm, radial pulses palpable and symmetrical. Absent: calf tenderness, cyanotic, pedal edema - Neurological Exam Neurological exam: Present: CN II-XII intact, oriented X3, no focal deficits. Absent: pronater drift, facial droop, speech deficit - Skin Skin exam: Present: dry, intact Internal Medicine: Result - Labs CBC & Chem 7: 09/16/18 05:50 09/16/18 05:50 - ABG Interpretation ABG results: PT/INR, D-dimer PT 12.4 Seconds (9.4-12.1) H 09/15/18 11:05 Consult Discharge Plan - Plan Referrals: Jatin Schultz, RETAIL SHIFT MANAGER [Primary Care Provider] -
[2018-09-17] MEDS: Mirtazapine 15 MG TABLET PO SCH (21:37)
[2018-09-18] MEDS: Levothyroxine 25 MCG TABLET PO SCH (05:20)
[2018-09-18] MEDS: Diltiazem CD (24hr) 120 MG CAPSULE PO SCH (09:05)
[2018-09-18] MEDS: Aspirin Enteric Coated 81 MG Tablet PO SCH (09:21)
[2018-09-18] MEDS: Cholecalciferol (D-3) 1,000 UNIT (25MCG) TABLET PO SCH (09:21)
[2018-09-18] MEDS: Tolterodine LA (24 HR) 2 MG CAP.ER.24H PO SCH (09:21)
--- NOTE | 2018-09-18 10:13 | Physician Discharge Referral ---
Home Health/Hosp Referral Info Transfer to: Home Health Provider in Charge Post Discharge: PCP - Diagnosis (1) Abdominal pain Priority: Primary Status: Acute (2) CAD (coronary artery disease) Priority: Secondary Status: Chronic (3) CKD (chronic kidney disease), stage III Priority: Secondary Status: Chronic (4) Atrial fibrillation Priority: Secondary Status: Chronic (5) HTN (hypertension) Priority: Secondary Status: Chronic - Respiratory Orders Smoking Cessation: Smoking cessation has been advised. For more information, call the [place] Tobacco Quit Line at 8-185-IVNR-NOW. - Diet/Nutrition Diet/Nutrition Orders: No Added Salt (ADRIA), Renal, Cardiac - Activity Activity Orders: Up ad ceferino, Walker - Services Needed Following services are medically necessary services: Nursing, Physical Therapy, Occupational Therapy - Transfer Medications Home Medications: Atorvastatin [Lipitor] 40 mg PO HS 10/17/15 [History] Clopidogrel [Plavix] 75 mg PO DAILY 10/17/15 [History] Nitroglycerin [Nitrostat] 0.4 mg SL PRN PRN 11/25/16 [History] Cholecalciferol (D-3) [Vitamin D] 5,000 unit PO DAILY 09/13/17 [History] Diltiazem CD (24hr) [Cardizem CD] 120 mg PO DAILY 30 Days #30 cap.er.24h 09/16/17 [Rx] Midodrine [ProAmatine] 7.5 mg PO 0800,1200,1700 30 Days #90 tablet 09/16/17 [Rx] Aspirin [Lo-Dose Aspirin EC] 81 mg PO DAILY 10/29/17 [History] Mirtazapine [Remeron] 15 mg PO HS 10/29/17 [History] LORazepam [Ativan] 0.5 mg PO BID 09/15/18 [History] Levothyroxine [Synthroid] 25 mcg PO 0630 09/15/18 [History] Tolterodine Tartrate [Tolterodine Tartrate ER] 2 mg PO DAILY 09/15/18 [History] Allergies/Adverse Reactions: Allergy/AdvReac Type Severity Reaction Status Date / Time No Known Allergies Allergy Verified 09/15/18 11:05 Certification: Further, I certify that my clinical findings support that this patient is homebound (i.e. absences from home require considerable and taxing effort and are for medical reasons or adventism services or infrequently or short duration when for other reasons) because: Homebound Reason: Leaving home requires considerable and taxing effort due to condition Attestation: My signature below is to certify that this patient is under my care and that I, or nurse practitioner, or a physician's assistant professor of anthropology working with me, has a [id number] encounter with this patient.
[2018-09-18 11:31] VITALS: BP 145/83
--- NOTE | 2018-09-18 12:19 | Discharge Summary ---
Orders not resulted at time of discharge: Pending orders 09/15/18 12:53 Urinalysis Reflex Cult & Micro [URIN] Stat Date of Encounter: 09/18/18 Time of Encounter: 12:15 - Discharge Diagnosis (1) Abdominal pain Priority: Primary Status: Acute Comments: Patient was admitted to the emergency department with complaints of severe right lower quadrant pain. Patient had imaging that was obtained which shows no acute processes. Patient had status soon after discharge that his pain had resolved. Patient has had BMs since his stay. Abdomen appears nonacute on exam. Patient is being discharged to home and will continue with follow-up and therapy through home health services. Patient is recommended to follow-up with his family physician after discharge and will continue on current medications Qualifiers: Abdominal location: unspecified location Qualified Code(s): R10.9 - Unspecified abdominal pain (2) CAD (coronary artery disease) Priority: Secondary Status: Chronic Comments: No acute issues during his stay. Patient was evaluated due to symptoms that he had related of possible syncope at home. Patient was maintained on the residential monitor during his stay with no complex ectopy noted. Patient's ventricular rate has remained controlled less than 100. Vital signs have maintained stable. Patient had an echocardiogram that was obtained which shows no acute process. Patient had bilateral carotid Dopplers that were obtained with results pending. Patient has had a recent carotid Dopplers obtained approximately 2 years prior which showed minimal stenosis. If any acute findings were obtained patient will be instructed to return to his [facility] for further evaluation and treatment. Patient is recommended this time to follow-up with his family physician and cardiology for further management. Qualifiers: Coronary Disease-Associated Artery/Lesion type: [place] artery [place] vs. transplanted heart: [place] heart Associated angina: without angina Qualified Code(s): I25.10 - Atherosclerotic heart disease of [place] coronary artery without angina pectoris (3) CKD (chronic kidney disease), stage III Priority: Secondary Status: Chronic Comments: No acute issues during his stay. Patient continues with renal insufficiency with his latest creatinine showing a 2.33. (4) Atrial fibrillation Priority: Secondary Status: Chronic Comments: No acute issues during stay. Patient was maintained on residential monitor during his stay with his ventricular rate showing controlled less than 100. Patient will continue with his current home medications and is to follow-up with his [facility] and PCP for further management Qualifiers: Atrial fibrillation type: paroxysmal Qualified Code(s): I48.0 - Paroxysmal atrial fibrillation (5) HTN (hypertension) Priority: Secondary Status: Chronic Comments: Vital signs remained stable. Patient is to continue with home medications and follow-up with his PCP for further management Qualifiers: Hypertension type: essential hypertension Qualified Code(s): I10 - Essential (primary) hypertension Hospital course: Mr. Charles is a 87 year old male, who presents to the emergency department with the daughter providing much of the history per medical records. Patient noted to be a poor historian, so most of his Hx is being obtained from his [place] d[place]. His daughter stated that he awakened this morning with symptoms of lightheadedness, dizziness, weakness, and has not felt well for the last 24 hours. Patient reported that he felt nauseated but did not vomit, but has been belching. He usually uses a walker, but has felt too weak to walk. Patient has stated that he experienced an episode of syncope at home. Patient reported right lower quadrant pain which radiated to his right upper abdomen. He has had constipation for 6 days and finally had a bowel movement yesterday which was dark but the color is always dark according to the daughter. He reported that his right lower quadrant dull pain had been moderate in intensity, worsened if he moved or changed position. He has a past medical history of atrial fibrillation, also other irregular beats for which she had a loop recorder implanted by Dr. Mendez. He has had 2 cardiac stents one of which done 2 years ago after symptoms similar to today's Was admitted to medical floor for further evaluation due to his abdominal pain and his syncopal episode at home. Patient stated that his abdominal pain had soon resolved after his admission and patient was able to maintain a diet and had a BM during his stay. He denies any tenderness to abdomen on day of discharge and abdomen appears nonacute on exam. Patient was maintained on a residential monitor during his stay which showed atrial fibrillation with no complex ectopy noted and is ventricular rate had remained controlled less than 100. Patient had echocardiogram which showed no acute issues in comparison to his previous studies. Patient also had bilateral carotid Dopplers that were obtained with results pending. Patient has had a recent carotid Dopplers done approximately 2 years ago which showed only minimal plaquing and stenosis. If results show significant stenosis patient will be instructed to return to his [facility] for further evaluation and treatment. Patient was evaluated by therapy during his stay with no recommended treatment. Patient is being discharged to home with instructions to follow-up with his [facility] and his PCP within one week. Patient will have continued therapy through home health services. - Time Spent with Patient Total time spent providing and/or coordinating discharge services: - Discharge Medications Prescriptions: No Action Cholecalciferol (D-3) [Vitamin D] 5,000 unit PO DAILY Diltiazem CD (24hr) [Cardizem CD] 120 mg PO DAILY 30 Days #30 cap.er.24h Midodrine [ProAmatine] 7.5 mg PO 0800,1200,1700 30 Days #90 tablet Aspirin [Lo-Dose Aspirin EC] 81 mg PO DAILY Mirtazapine [Remeron] 15 mg PO HS Clopidogrel [Plavix] 75 mg PO DAILY Atorvastatin [Lipitor] 40 mg PO HS Nitroglycerin [Nitrostat] 0.4 mg SL PRN PRN PRN Reason: Chest Pain Levothyroxine [Synthroid] 25 mcg PO 0630 Tolterodine Tartrate [Tolterodine Tartrate ER] 2 mg PO DAILY LORazepam [Ativan] 0.5 mg PO BID Home Medications: Atorvastatin [Lipitor] 40 mg PO HS 10/17/15 [History] Clopidogrel [Plavix] 75 mg PO DAILY 10/17/15 [History] Nitroglycerin [Nitrostat] 0.4 mg SL PRN PRN 11/25/16 [History] Cholecalciferol (D-3) [Vitamin D] 5,000 unit PO DAILY 09/13/17 [History] Diltiazem CD (24hr) [Cardizem CD] 120 mg PO DAILY 30 Days #30 cap.er.24h 09/16/17 [Rx] Midodrine [ProAmatine] 7.5 mg PO 0800,1200,1700 30 Days #90 tablet 09/16/17 [Rx] Aspirin [Lo-Dose Aspirin EC] 81 mg PO DAILY 10/29/17 [History] Mirtazapine [Remeron] 15 mg PO HS 10/29/17 [History] LORazepam [Ativan] 0.5 mg PO BID 09/15/18 [History] Levothyroxine [Synthroid] 25 mcg PO 0630 09/15/18 [History] Tolterodine Tartrate [Tolterodine Tartrate ER] 2 mg PO DAILY 09/15/18 [History] Allergies/Adverse Reactions: Allergy/AdvReac Type Severity Reaction Status Date / Time No Known Allergies Allergy Verified 09/15/18 11:05 Date of admission: 09/15/18 15:54 Primary care physician: Jatin Schultz CNP Consults: 09/17/18 08:57 Consult to Occupational Therapy [CONS] Routine Comment: Evaluate, develop and implement POC Reason for Consult: Consult/patient is weak. Does patient have active BEDREST order?: No Is patient medically & hemodynamically stable?: Yes Consult to Physical Therapy [CONS] Routine Comment: Evaluate, develop and implement POC Reason for Consult: Consult/patient is weak. Does patient have active BEDREST order?: No Is patient medically & hemodynamically stable?: Yes Discharging clinician: Mac Bazan - Constitutional Vitals: Temp Pulse Resp BP Pulse Ox 98.0 F 95 16 145/83 92 09/18/18 11:30 09/18/18 11:30 09/18/18 11:30 09/18/18 11:30 09/18/18 11:30 General appearance: Present: A&O X 3, pleasant - Head Head exam: Present: atraumatic, normocephalic - Eye Eye exam: Present: PERRL, conjuntiva pink, sclera anicteric Pupils: Present: PERRL - Neck Neck exam general surgery: Present: supple, trachea midline. Absent: lymphadenopathy - Respiratory Respiratory exam: Present: decreased breath sounds, CTAB. Absent: accessory muscle use, rales, rhonchi, wheezes - Cardiovascular Cardiovascular exam: Present: irregular rhythm, RRR, +S1, +S2. Absent: diastolic murmur, gallop, rubs, systolic murmur Additional comments: Ventricular rate remains controlled less than 100. - GI/Abdominal GI/Abdominal exam: Present: normal bowel sounds, soft, no peritoneal signs. Absent: distended, tenderness - Extremities Exam Extremities exam: Present: warm, radial pulses palpable and symmetrical. Absent: calf tenderness, cyanotic, pedal edema - Neurological Exam Neurological exam: Present: CN II-XII intact, oriented X3, no focal deficits. Absent: pronater drift, facial droop, speech deficit - Skin Skin exam: Present: dry, intact - Patient Status Disposition: Home Health Service Condition: Good Functional capacity at discharge: uses cane/walker Overall status at discharge: patient is progressing back to baseline - Discharge Instructions Follow Up With: Mireya Mendez MD [Partnered Physician] - Jatin Schultz CNP [Primary Care Provider] - - Diet and Activity Activity: ambulate only with your walker, increase activity as tolerated Diet: low fat, low cholesterol, low salt diet
[2018-09-18] MEDS: *HR* LORazepam 0.5 MG TABLET PO PRN (14:22)
== END 2018-09-18 14:35 | disposition home health service (06) ==
LOC: EMEROOGRE 10:37 → INPGRE 10:37
PROVIDERS: ADMIT Internal Medicine; ATTEND Internal Medicine

== ENCOUNTER 2018-12-22 12:19 | Observation (INO) ==
[2018-12-22 13:12] LABS: Basophils # 0.1 K/mcL (0.0-0.2); Basophils % 0.5 %; Eosinophils % 0.2 %; Hematocrit 44.3 % (37.5-50.1); Hemoglobin 14.6 g/dL (12.9-16.9); Immature Granulocytes % 0.4 % (0-4); Mean Corpuscular Hemoglobin 31.9 pg (28.0-33.3); Mean Corpuscular Volume 96.7 fL (83.0-100.0); Mean Platelet Volume 9.1 fL (9.4-12.4); Monocytes # 0.8 K/mcL (0.0-1.3); Monocytes % 8.2 %; Neutrophils # 7.5 K/mcL (1.6-8.9); Platelet Count 272 K/mcL (140-400); Red Blood Count 4.58 M/mcL (4.19-5.50); Red Cell Distribution Width 14.4 % (11.5-14.5); Segmented Neutrophils % 79.7 %; White Blood Count 9.4 K/mcL (4.3-11.1)
[2018-12-22 13:19] LABS: INR 1.1; Prothrombin Time 12.3 Seconds (9.4-12.1)
[2018-12-22 13:28] LABS: Calcium 9.3 mg/dL (8.6-10.3); Potassium 4.1 mEq/L (3.5-5.1)
[2018-12-22 13:32] LABS: Troponin I 0.03 ng/mL (< 0.04)
[2018-12-22] MEDS: 0.9 % Sodium Chloride 1,000 ML IVC SCH ×2 (15:39→23:13)
[2018-12-22] MEDS ORDERED: Nitroglycerin 0.4 MG TAB.SUBL SL PRN ×2 (16:11→16:40)
[2018-12-22] MEDS: *HR* LORazepam 0.5 MG TABLET PO SCH (20:24)
[2018-12-22] MEDS ORDERED: Mirtazapine 15 MG TABLET PO SCH (21:00)
[2018-12-23 05:40] LABS: Calcium 8.3 mg/dL (8.6-10.3); Potassium 3.9 mEq/L (3.5-5.1)
[2018-12-23] MEDS ORDERED: *HR* Enoxaparin 30 MG/0.3 ML SYRINGE SQ SCH (06:00)
[2018-12-23] MEDS ORDERED: Levothyroxine 25 MCG TABLET PO SCH (06:30)
[2018-12-23] MEDS: 0.9 % Sodium Chloride 1,000 ML IVC SCH (07:27)
[2018-12-23] MEDS: *HR* LORazepam 0.5 MG TABLET PO SCH (08:26)
[2018-12-23] MEDS ORDERED: Magnesium Oxide 400 MG TABLET PO SCH (09:00)
[2018-12-23] MEDS ORDERED: Diltiazem CD (24hr) 120 MG CAPSULE PO SCH (09:00)
[2018-12-23] MEDS ORDERED: Aspirin Enteric Coated 81 MG Tablet PO SCH (09:00)
[2018-12-23] MEDS ORDERED: Cholecalciferol (D-3) 1,000 UNIT (25MCG) TABLET PO SCH (09:00)
[2018-12-23] MEDS ORDERED: Tolterodine LA (24 HR) 2 MG CAP.ER.24H PO SCH (09:00)
[2018-12-23 11:43] VITALS: BP 159/82
[2018-12-23 17:35] LABS: Bilirubin,Urine Negative (Negative); Blood,Urine Negative (Negative); Clarity,Urine Clear (Clear); Color,Urine Yellow (Yellow); Glucose,Urine (UA) Normal (Normal); Ketones,Urine Negative (Negative); Leukocyte Esterase,Urine Negative (Negative); Nitrite,Urine Negative (Negative); PH,Urine 6.5 pH Units (5.0-8.0); Protein,Urine Negative (Neg-Trace); Specific Gravity,Urine 1.015 (1.010-1.025); Urobilinogen,Urine Normal (Normal)
== END 2018-12-23 16:50 | disposition home or self-care (01) ==
LOC: INPGRE 12:19 → EMEROOGRE 12:19 → INPGRE 16:22